=== PATIENT | female | born 1985 | race Caucasian/White ===

== ENCOUNTER → 2016-04-02 | Outpatient (CLI) | payer OTHER ==
[~2016-04-02] MED LIST: AC500T PO; ASPI-999 PO; CEPH-507 PO; CPR250T PO; DCS100C PO; DOCU100C37 PO; FOLI0.8T PO; HYDR-3720 PO; IBP800T PO; IBUP-1780 PO; KETO-22 PO; MEPE50TA PO; NITR-33 PO; NITR-65 PO; ONDA8TAB6 PO; ONDAN4ODT PO; ONDN4T PO; OXYC-12 PO; OXYC-272 PO; OXYC-465 PO; OXYC10TA8; PEDI1TAB35 PO; PREN1TAB14 PO; PREN1TAB86 PO; PROM25SU10 RC; TRM50T PO; birth control pill
--- NOTE | 2016-04-02 11:53 | Diagnostic Imaging Report ---
EXAMINATION: Right lower extremity duplex venous ultrasound. TECHNIQUE: DVT protocol. Multiple sonographic images with color Doppler and waveform interrogation were performed of the right lower extremity veins with compression and augmentation maneuvers. INDICATION: Right leg pain. FINDINGS: The right lower extremity veins from the groin to below the knee veins were examined with normal color-flow, compressibility and normal waveform demonstrated. The great saphenous vein is patent. IMPRESSION: No evidence of DVT in the right lower extremity. Dictated by: Dictated on workstation # [id number]
== END ==
LOC: RAD 11:02
PROVIDERS: ATTEND Obstetrics & Gynecology
DX: M79.661 Pain in right lower leg (principal)

== ENCOUNTER 2016-04-09 22:05 | Observation (INO) | payer OTHER ==
[~2016-04-09] VITALS: Ht 168.9 cm; Wt 109.3 kg
[~2016-04-09 22:05] MED LIST changes: -ASPI-999 PO; -CEPH-507 PO; -DOCU100C37 PO; -FOLI0.8T PO; -IBUP-1780 PO; -OXYC-465 PO; -PEDI1TAB35 PO; -PREN1TAB86 PO
--- OUTSIDE RECORDS SUMMARY | 2016-04-09 22:09 | XMS REPORT ---
Author Author CLEMENCIA BARRETO Organization [employer] Address Unknown Phone Unavailable Care Team Providers Care Electronic Tester Name Role Phone CLEMENCIA BARRETO CP Unavailable Allergies No Known Allergies Problems Problem Type Condition Code Onset Dates Condition Status Problem Acute upper respiratory infections of unspecified site 465.9 Active Problem Polycystic ovaries 256.4 Active Problem examination or test, positive result V72.42 Active Problem Dietary surveillance and counseling V65.3 Active Problem Supervision of normal first V22.0 Active Problem Overweight 278.02 Active Problem Need for prophylactic vaccination and inoculation, Influenza V04.81 Active Problem Allergic rhinitis, cause unspecified 477.9 Active Problem Leukorrhea, not specified as infective 623.5 Active Problem Unspecified constipation 564.00 Active Problem General counseling for initiation of other contraceptive measures V25.02 Active Problem Surveillance of previously prescribed intrauterine contraceptive device V25.42 Active Problem DTAP TEST V06.1 Active Problem Unspecified examination V72.9 Active Problem Family history of unspecified malignant neoplasm V16.9 Active Problem Benign neoplasm of skin, site unspecified 216.9 Active Medications Medication Code System Code Instructions Start Date End Date Status Dosage Amoxicillin [facility] [address]-83 500 MG Orally every 12 hrs Jan 21, 2015 Jan 28, 2015 1 capsule Results No Known Results Summary Purpose [employer] Submission
[2016-04-09 22:23] VITALS: BP 121/64
[2016-04-09] MEDS ORDERED: D5 LR IV SOLUTION 1,000 ML IV ONE (22:37)
[2016-04-09] MEDS ORDERED: BUTORPHANOL INJ 2 MG/ML (STADOL) VIAL IV PRN ×2 (22:45→23:45)
[2016-04-09] MEDS: D5 LR IV SOLUTION 1,000 ML IV SCH (22:57)
[2016-04-09 23:16] LABS: BASOPHILS % (AUTO) 0 % (0-10); BILIRUBIN,URINE NEGATIVE (NEGATIVE); EOSINOPHILS # (AUTO) 0.1 10^3/uL (0.0-0.3); EOSINOPHILS % (AUTO) 1 % (0-10); KETONES,URINE NEGATIVE (NEGATIVE); LEUKOCYTE ESTERASE ,URINE NEGATIVE (NEGATIVE); LYMPHOCYTES # (AUTO) 2.9 X 10^3 (1.0-4.0); LYMPHOCYTES % (AUTO) 25 % (12-44); MEAN CORPUSCULAR HEMOGLOBIN 31 PG (25-34); MEAN CORPUSCULAR HGB CONC 35 G/DL (32-36); MEAN CORPUSCULAR VOLUME 89 FL (80-99); MEAN PLATELET VOLUME 9.7 FL (7.4-10.4); MONOCYTES # (AUTO) 0.8 X 10^3 (0.0-1.0); MONOCYTES % (AUTO) 7 % (0-12); NEUTROPHILS # (AUTO) 7.8 X 10^3 (1.8-7.8); NEUTROPHILS % (AUTO) 68 % (42-75); NITRITE,URINE NEGATIVE (NEGATIVE); PH,URINE 7 (5-9); PLATELET COUNT 266 10^3/uL (130-400); PROTEIN,URINE NEGATIVE (NEGATIVE); RED BLOOD COUNT 3.69 10^6/uL (4.35-5.85); RED CELL DISTRIBUTION WIDTH 12.5 % (10.0-14.5); UROBILINOGEN,URINE NORMAL (NORMAL); WHITE BLOOD COUNT 11.6 10^3/uL (4.3-11.0)
[2016-04-09] MEDS ORDERED: ASPI-999 PO (23:36)
[2016-04-09] MEDS ORDERED: PEDI1TAB35 PO (23:36)
[2016-04-09] MEDS ORDERED: FOLI0.8T PO (23:36)
[2016-04-10] MEDS: D5 LR IV SOLUTION 1,000 ML IV SCH ×2 (01:55→06:48)
--- NOTE | 2016-04-10 07:05 | History & Physical ---
History and Physical this patient is a 30-year-old white female with an EDC of 4 2617 patient her 28 and 29 weeks gestation. she presented with complaint of severe left flank pain like she had had when she had kidney stones before. Evaluation was consistent with recurrent nephrolithiasis/ureteral lithiasis. Patient denies rupture membranes or bleeding. She does feel baby moving. She denies ever chills. She's had no other problems with this . Allergies are to codeine which causes nausea and vomiting Medications are vitamins folic acid and a 81 mg aspirin a day S medical history, past surgical history, obstetric history, family history and social histories are per the antepartum record HEENT exam is normal Neck is supple no lymphadenopathy no thyromegaly Abdomen is gravid soft nontender nondistended Extreme show clubbing cyanosis. There is no Homans sign. Patient has mild left flank tenderness on palpation Exam is deferred Laboratory Tests Test 04/09/16 23:00 Range/Units Basophils # (Auto) 0.0 0.0-0.1 10^3/uL Basophils (%) (Auto) 0 0-10 % Eosinophils # (Auto) 0.1 0.0-0.3 10^3/uL Eosinophils (%) (Auto) 1 0-10 % Hematocrit 33 L 35-52 % Hemoglobin 11.3 L 11.5-16.0 G/DL Lymphocytes # (Auto) 2.9 1.0-4.0 X 10^3 Lymphocytes (%) (Auto) 25 12-44 % Mean Corpuscular Hemoglobin 31 25-34 PG Mean Corpuscular Hemoglobin Concent 35 32-36 G/DL Mean Corpuscular Volume 89 80-99 FL Mean Platelet Volume 9.7 7.4-10.4 FL Monocytes # (Auto) 0.8 0.0-1.0 X 10^3 Monocytes (%) (Auto) 7 0-12 % Neutrophils # (Auto) 7.8 1.8-7.8 X 10^3 Neutrophils (%) (Auto) 68 42-75 % Platelet Count 266 130-400 10^3/uL Red Blood Count 3.69 L 4.35-5.85 10^6/uL Red Cell Distribution Width 12.5 10.0-14.5 % Urine Bacteria NEGATIVE /HPF Urine Bilirubin NEGATIVE NEGATIVE Urine Casts NONE /LPF Urine Clarity CLEAR Urine Color YELLOW Urine Crystals NONE /LPF Urine Culture Indicated NO Urine Glucose (UA) NEGATIVE NEGATIVE Urine Ketones NEGATIVE NEGATIVE Urine Leukocyte Esterase NEGATIVE NEGATIVE Urine Mucus NEGATIVE /LPF Urine Nitrite NEGATIVE NEGATIVE Urine Protein NEGATIVE NEGATIVE Urine RBC 50-100 H /HPF Urine RBC (Auto) 5+ H NEGATIVE Urine Specific [place] 1.010 L 1.016-1.022 Urine Urobilinogen NORMAL NORMAL MG/DL Urine WBC 2-5 /HPF Urine pH 7 5-9 White Blood Count 11.6 H 4.3-11.0 10^3/uL Patient's white blood cell count is very mildly elevated she has significant microhematuria. monitor shows no contractions and normal heart rate pattern Assessment and plan likely recurrent kidney stones. Patient currently is hydration and analgesia and observation. We'll consult [facility] for any further evaluation and management. We'll go ahead with [facility] to cover empirically. nephrolithiasis/ureterolithiasis/28 week Allergies and Home Medications Allergies Coded Allergies: Hydrocodone (Unverified Allergy, Mild, 02/15/09) Home Medications Aspirin 81 Mg Tab.chew 81 MG PO DAILY (Reported) Folic Acid 0.8 Mg Tablet 0.8 MG PO DAILY (Reported) Pediatric Multivit Comb. No.49 1 Each Tab.chew 2 EACH PO DAILY (Reported) FERNANDO ALMANZA MD Apr 10, 2016 7:05 am
[2016-04-10] MEDS ORDERED: oxyCODONE/APAP 10/325MG (PERCOCET 10) TABLET PO PRN (07:15)
[2016-04-10] MEDS ORDERED: ceFAZolin 2 GM/50 ML NS 50 ML IV SCH (07:15)
[2016-04-10 08:22] VITALS: BP 115/73
--- NOTE | 2016-04-10 10:02 | Diagnostic Imaging Report ---
EXAMINATION: Renal ultrasound. INDICATION: Left flank pain. History of stones. FINDINGS: There is a mild left hydronephrosis. The right kidney is normal. The urinary bladder appears unremarkable. There is an asymmetric diminished ureteric jet seen on the left side compared to the right side with color Doppler. No obvious stone is identified in this exam. The right kidney is 15 CM in length and the left kidney is 13.6 CM in length. IMPRESSION: Mild left hydronephrosis. Dictated by: Dictated on workstation # [id number]
--- NOTE | 2016-04-10 10:40 | Diagnostic Imaging Report ---
EXAM: ABDOMEN/KUB 1VIEW INDICATION: Flank pain. COMPARISON: KUB 10/25/2010. FINDINGS: No radiopaque densities identified overlying either kidney or course of the ureters. Cholecystectomy. Large amount of stool throughout the colon may represent a degree of constipation. Late skeletal structures. The patient reportedly signed consent prior to examination. IMPRESSION: 1. No radiopaque densities identified suggestive of urinary calculi. 2. Large amount of stool throughout much of the colon may represent a degree of constipation. Dictated by: Dictated on workstation # [id number]
[2016-04-10] MEDS ORDERED: OXYC-465 PO (11:33)
--- NOTE | 2016-04-10 11:37 | Discharge Instructions ---
Discharge Instructions Discharge Medications New, Converted or Re-Newed RX: RX on Chart Patient Instructions Patient Instructions: as directed Return to The Hospital For: as directed Activity & Diet Discharge Diet: No Restrictions Activity as Tolerated: Yes Orders-Post D/C & Referrals Follow Up Appt: return to clinic with me as scheduled Follow-up with Dr. Benson next week Return to clinic promptly for any signs symptoms and indications of recurrent kidney stones Activity: Rest for 24 hours, than as tolerated. Diet: As tolerated. May shower or tub bathe as desired. Patient to return to the clinic as soon as possible for: Temperature greater than 101F, Severe Pain, Foul discharge from incision or vagina, Excessive Bleeding (more than a period). FERNANDO ALMANZA MD Apr 10, 2016 11:37
[2016-04-10 12:04] VITALS: BP 113/70
--- NOTE | 2016-04-10 12:46 | CONSULTATION REPORT ---
DATE OF CONSULTATION: 04/10/2016 ATTENDING PHYSICIAN: Dr. Stephenson. SUMMARY: 31-year-old white lady who I removed a stone about 5 years ago. She is 28 weeks . She is being admitted by Dr. Stephenson with left flank pain similar to her previous left renal colic. She has not had any x-ray yet. She feels comfortable; pain comes and goes She has some tenderness in the left flank. IMPRESSION: Left flank and abdominal pain, possible stone with history of urolithiasis. PLAN: Start getting a KUB and a renal ultrasound and manage accordingly. Job ID: [id number] Dictated Date: 04/10/2016 09:19:40 Heading Saw Operator Date: 04/10/2016 12:43:51/french
== END 2016-04-10 11:34 | disposition home or self-care (01) ==
LOC: LDRP 22:05 → WSo 22:05 → LDRP 22:10 → UNDOADMOB 22:34 → LDRP 22:34 → WSo 22:34 → LDRP 22:34 → UNDODISOB 04-10 12:37 → EDSTATUS 04-12 11:12
PROVIDERS: ADMIT Obstetrics & Gynecology; ATTEND Obstetrics & Gynecology
DX: O99.89 Other specified diseases and conditions complicating pregnancy, childbirth and the puerperium (principal); R10.32 Left lower quadrant pain; Z3A.28 28 weeks gestation of pregnancy
CPT/HCPCS: 36415; 74000; 76770; 81000; 85025; 87088; 96361; 96374; 96375; 96376; 99211; G0378

== ENCOUNTER 2016-04-11 09:00 | Inpatient (IN) | payer OTHER ==
[~2016-04-11] VITALS: Ht 167.6 cm; Wt 109.8 kg
[~2016-04-11 09:00] MED LIST changes: +ASPI-999 PO; +FOLI0.8T PO; +OXYC-465 PO; +PEDI1TAB35 PO
[2016-04-11] MEDS ORDERED: ONDANSETRON 4 MG/2 ML (SDV) Z0FRAN IVP ONE (09:30)
[2016-04-11] MEDS ORDERED: BUTORPHANOL INJ 2 MG/ML (STADOL) VIAL IV ONE (09:30)
[2016-04-11] MEDS: D5 LR IV SOLUTION 1,000 ML IV SCH ×2 (10:29→19:14)
[2016-04-11 10:35] LABS: BASOPHILS % (AUTO) 0 % (0-10); EOSINOPHILS % (AUTO) 0 % (0-10); LYMPHOCYTES # (AUTO) 1.2 X 10^3 (1.0-4.0); LYMPHOCYTES % (AUTO) 10 % (12-44); MEAN CORPUSCULAR HEMOGLOBIN 30 PG (25-34); MEAN CORPUSCULAR HGB CONC 34 G/DL (32-36); MEAN CORPUSCULAR VOLUME 89 FL (80-99); MEAN PLATELET VOLUME 9.3 FL (7.4-10.4); MONOCYTES # (AUTO) 0.5 X 10^3 (0.0-1.0); MONOCYTES % (AUTO) 4 % (0-12); NEUTROPHILS # (AUTO) 10.3 X 10^3 (1.8-7.8); NEUTROPHILS % (AUTO) 85 % (42-75); PLATELET COUNT 258 10^3/uL (130-400); RED BLOOD COUNT 3.81 10^6/uL (4.35-5.85); RED CELL DISTRIBUTION WIDTH 12.5 % (10.0-14.5)
[2016-04-11 10:45] VITALS: BP 114/65
[2016-04-11 10:57] LABS: ALANINE AMINOTRANSFERASE 10 U/L (0-55); ALBUMIN 3.5 G/DL (3.2-4.5); ANION GAP 11 MMOL/L (5-14); ASPARTATE AMINO TRANSFERASE 14 U/L (5-34); BILIRUBIN,TOTAL 0.3 MG/DL (0.1-1.0); BLOOD UREA NITROGEN 8 MG/DL (7-18); BUN/CREATININE RATIO 9; CALCIUM 9.4 MG/DL (8.5-10.1); CARBON DIOXIDE 22 MMOL/L (21-32); CHLORIDE 104 MMOL/L (98-107); CREATININE SERUM 0.85 MG/DL (0.60-1.30); GFR ESTIMATED > 60; GLUCOSE 99 MG/DL (70-105); POTASSIUM 4.3 MMOL/L (3.6-5.0); SODIUM 137 MMOL/L (135-145); TOTAL PROTEIN 6.7 G/DL (6.4-8.2)
[2016-04-11 12:12] VITALS: BP 120/70
[2016-04-11] MEDS: CATHETER FLUSH 10 ML SYR IV PRN ×3 (13:11→14:51)
[2016-04-11] MEDS ORDERED: IOHEXOL 300 MG/ML 100 ML (OMNIPAQUE 300) VIAL IV ONE (13:15)
[2016-04-11 14:00] VITALS: BP 125/66
[2016-04-11] MEDS ORDERED: cefTRIAXone INJECTION 1,000 MG in NS (IVPB) 50 ML IV SCH (14:00)
[2016-04-11] MEDS ORDERED: BUTORPHANOL INJ 2 MG/ML (STADOL) VIAL IV PRN (14:15)
--- NOTE | 2016-04-11 14:53 | Diagnostic Imaging Report ---
EXAMINATION: IVP. INDICATION: Evaluate for kidney stone. Patient has significant left flank pain and has hydronephrosis on the left side. TECHNIQUE: The patient is and the study is performed with a modified technique with only 2 KUB images to decrease the radiation exposure to minimum. The patient was also consulted about the small risk and based on the diagnostic benefit from the study the patient has agreed to perform the exam. 100 mL of Omnipaque 300 is administered intravenously. FINDINGS: 2 images one at 6 minutes and the other one at 45 minutes were obtained after contrast injection. The 6 minute image demonstrates a 6 mm calcification in the left side of the pelvis suspected to be a stone. This demonstrates a asymmetric normal prompt excretion of contrast on the right side to the renal collecting system and the ureter which is minimally dilated, expected in . There is persistent nephrogram at the 6 minute image on the left side with no excretion. The delayed 45 minute image demonstrates still persistent asymmetric nephrogram on the left side with moderate right hydronephrosis and the mildly dilated proximal ureter. The ureter appears to be opacified to the level of the stone. Liver and bladder is normally opacified. IMPRESSION: Findings suggestive of obstructive 6 mm stone in the distal left ureter about 3.5 CM from the UVJ level. There is moderate left hydronephrosis. The findings were discussed with Dr. Fonseca by Dr. Wiley at time of dictation. Dictated by: Dictated on workstation # [id number]
[2016-04-11 17:07] VITALS: BP 111/61
--- NOTE | 2016-04-11 17:11 | History & Physical ---
History and Physical this patient is a 30-year-old white female with an EDC of 4 2617 placing her at 29+ weeks' gestation. She had been observed yesterday signs symptoms and indications consistent with kidney stone which seem that she had passed as her symptoms have resolved. A KUB and ultrasound were negative. She was discharged home yesterday is entered again this morning with severe sudden onset recurrently of left flank and back pain. She is admitted given IV fluids and IV pain medication to good effect. A limited IVP 6 demonstrated a left ureteral stone at the level of the pelvic brim. Dr. Benson has been consulted and will be managing the patient in that regard.. Patient denies rupture membranes or bleeding. She denies contraction. Her pain is controlled with medication. Allergies are to codeine which causes vomiting Medications are vitamins, folic acid, 81 mg aspirin a day. Past medical history, past surgical history, obstetric history, family history, and social histories are per the antepartum record HEENT exam is normal Neck is supple with no lymphadenopathy no thyromegaly Abdomen is gravid soft nontender nondistended Extremities show no clubbing cyanosis. There is no Homans sign. Pelvic exam is deferred Back exam shows some mild left flank tenderness on percussion. Again a limited IVP demonstrates a left ureteral stone Laboratory Tests Test 04/11/16 10:25 Range/Units Alanine Aminotransferase (ALT/SGPT) 10 0-55 U/L Albumin 3.5 3.2-4.5 G/DL Alkaline Phosphatase 106 40-136 U/L Anion Gap 11 5-14 MMOL/L Aspartate Amino Transf (AST/SGOT) 14 5-34 U/L BUN/Creatinine Ratio 9 Basophils # (Auto) 0.0 0.0-0.1 10^3/uL Basophils (%) (Auto) 0 0-10 % Blood Urea Nitrogen 8 7-18 MG/DL Calcium Level 9.4 8.5-10.1 MG/DL Carbon Dioxide Level 22 21-32 MMOL/L Chloride Level 104 98-107 MMOL/L Creatinine 0.85 0.60-1.30 MG/DL Eosinophils # (Auto) 0.0 0.0-0.3 10^3/uL Eosinophils (%) (Auto) 0 0-10 % Estimat Glomerular Filtration Rate > 60 Glucose Level 99 70-105 MG/DL Hematocrit 34 L 35-52 % Hemoglobin 11.6 11.5-16.0 G/DL Lymphocytes # (Auto) 1.2 1.0-4.0 X 10^3 Lymphocytes (%) (Auto) 10 L 12-44 % Mean Corpuscular Hemoglobin 30 25-34 PG Mean Corpuscular Hemoglobin Concent 34 32-36 G/DL Mean Corpuscular Volume 89 80-99 FL Mean Platelet Volume 9.3 7.4-10.4 FL Monocytes # (Auto) 0.5 0.0-1.0 X 10^3 Monocytes (%) (Auto) 4 0-12 % Neutrophils # (Auto) 10.3 H 1.8-7.8 X 10^3 Neutrophils (%) (Auto) 85 H 42-75 % Platelet Count 258 130-400 10^3/uL Potassium Level 4.3 3.6-5.0 MMOL/L Red Blood Count 3.81 L 4.35-5.85 10^6/uL Red Cell Distribution Width 12.5 10.0-14.5 % Sodium Level 137 135-145 MMOL/L Total Bilirubin 0.3 0.1-1.0 MG/DL Total Protein 6.7 6.4-8.2 G/DL White Blood Count 12.0 H 4.3-11.0 10^3/uL White blood cell count is very mildly elevated Assessment and plan ureteral colic secondary to a stone Dr. Benson is aware of and managing the patient. Management currently is IV fluids pain medicine and observation. If the stone does not pass over patient begins to become septic then Dr. Benson with manage the stone surgically. Patient is otherwise stable obstetrically. Plan is for inpatient management until this is resolved left ureterolithiasis Allergies and Home Medications Allergies Coded Allergies: Hydrocodone (Unverified Allergy, Mild, 02/15/09) Home Medications Aspirin 81 Mg Tab.chew 81 MG PO DAILY (Reported) Folic Acid 0.8 Mg Tablet 0.8 MG PO DAILY (Reported) Oxycodone HCl/Acetaminophen 1 Each Tablet #30 1-2 TAB PO Q4HR PRN PRN MODERATE PAIN Prescribed by: FERNANDO CORONA on 04/10/16 1133 Pediatric Multivit Comb. No.49 1 Each Tab.chew 2 EACH PO DAILY (Reported) FERNANDO ALMANZA MD Apr 11, 2016 17:11
[2016-04-11] MEDS ORDERED: ACETAMINOPHEN 325 MG TABLET/CAPLET (TYLENOL) PO PRN (17:30)
[2016-04-11 19:50] VITALS: BP 123/75
[2016-04-12] MEDS: D5 LR IV SOLUTION 1,000 ML IV SCH ×4 (02:35→20:55)
[2016-04-12 02:45] VITALS: BP 116/67
[2016-04-12 05:59] LABS: BASOPHILS % (AUTO) 0 % (0-10); EOSINOPHILS # (AUTO) 0.1 10^3/uL (0.0-0.3); EOSINOPHILS % (AUTO) 2 % (0-10); LYMPHOCYTES # (AUTO) 1.9 X 10^3 (1.0-4.0); LYMPHOCYTES % (AUTO) 26 % (12-44); MEAN CORPUSCULAR HEMOGLOBIN 30 PG (25-34); MEAN CORPUSCULAR HGB CONC 33 G/DL (32-36); MEAN CORPUSCULAR VOLUME 91 FL (80-99); MEAN PLATELET VOLUME 9.1 FL (7.4-10.4); MONOCYTES # (AUTO) 0.5 X 10^3 (0.0-1.0); MONOCYTES % (AUTO) 7 % (0-12); NEUTROPHILS # (AUTO) 4.8 X 10^3 (1.8-7.8); NEUTROPHILS % (AUTO) 65 % (42-75); PLATELET COUNT 221 10^3/uL (130-400); RED BLOOD COUNT 3.19 10^6/uL (4.35-5.85); RED CELL DISTRIBUTION WIDTH 12.5 % (10.0-14.5); WHITE BLOOD COUNT 7.4 10^3/uL (4.3-11.0)
--- NOTE | 2016-04-12 07:31 | Progress Note-Standard ---
Standard Progress Note Progress Notes/Assess & Plan Progress/Assessment & Plan patient complains of persistent left back/flank pain. Patient denies rupture membranes or bleeding. She feel baby moving and denies contractions. She denies headache, denies nausea vomiting, denies chest pain, denies shortness of breath. She does not feel like she has passed the left ureteral stone Vital Signs Date Time Temp Pulse Resp B/P Pulse Ox O2 Delivery O2 Flow Rate FiO2 04/12/16 02:45 98.1 71 18 116/67 97 Room Air 04/11/16 21:56 18 04/11/16 19:50 98.2 90 18 123/75 98 Room Air 04/11/16 17:07 97.6 80 20 111/61 Room Air 04/11/16 14:00 97.6 87 20 125/66 Room Air 04/11/16 12:12 97.8 74 18 120/70 99 Room Air 04/11/16 10:45 90 20 114/65 I & O 04/12/16 07:00 Intake Total 3790 ml Output Total 2550 ml Balance 1240 ml Vital signs are stable. Patient is afebrile. Laboratory Tests Test 04/11/16 10:25 04/12/16 05:53 Range/Units Alanine Aminotransferase (ALT/SGPT) 10 0-55 U/L Albumin 3.5 3.2-4.5 G/DL Alkaline Phosphatase 106 40-136 U/L Anion Gap 11 5-14 MMOL/L Aspartate Amino Transf (AST/SGOT) 14 5-34 U/L BUN/Creatinine Ratio 9 Basophils # (Auto) 0.0 0.0 0.0-0.1 10^3/uL Basophils (%) (Auto) 0 0 0-10 % Blood Urea Nitrogen 8 7-18 MG/DL Calcium Level 9.4 8.5-10.1 MG/DL Carbon Dioxide Level 22 21-32 MMOL/L Chloride Level 104 98-107 MMOL/L Creatinine 0.85 0.60-1.30 MG/DL Eosinophils # (Auto) 0.0 0.1 0.0-0.3 10^3/uL Eosinophils (%) (Auto) 0 2 0-10 % Estimat Glomerular Filtration Rate > 60 Glucose Level 99 70-105 MG/DL Hematocrit 34 L 29 L 35-52 % Hemoglobin 11.6 9.5 L 11.5-16.0 G/DL Lymphocytes # (Auto) 1.2 1.9 1.0-4.0 X 10^3 Lymphocytes (%) (Auto) 10 L 26 12-44 % Mean Corpuscular Hemoglobin 30 30 25-34 PG Mean Corpuscular Hemoglobin Concent 34 33 32-36 G/DL Mean Corpuscular Volume 89 91 80-99 FL Mean Platelet Volume 9.3 9.1 7.4-10.4 FL Monocytes # (Auto) 0.5 0.5 0.0-1.0 X 10^3 Monocytes (%) (Auto) 4 7 0-12 % Neutrophils # (Auto) 10.3 H 4.8 1.8-7.8 X 10^3 Neutrophils (%) (Auto) 85 H 65 42-75 % Platelet Count 258 221 130-400 10^3/uL Potassium Level 4.3 3.6-5.0 MMOL/L Red Blood Count 3.81 L 3.19 L 4.35-5.85 10^6/uL Red Cell Distribution Width 12.5 12.5 10.0-14.5 % Sodium Level 137 135-145 MMOL/L Total Bilirubin 0.3 0.1-1.0 MG/DL Total Protein 6.7 6.4-8.2 G/DL White Blood Count 12.0 H 7.4 4.3-11.0 10^3/uL patient's lab work is stable. Her white count has decreased somewhat Abdomen is benign. Fundus is nontender Extremities show no clubbing cyanosis. There is no Homans sign. Assessment and plan hospital day 2 with left ureteral stone and ureteral colic. Dr. Benson is aware and is following the patient and will manage her treatment in regard to the ureteral stone. We'll continue the antibiotics as recommended by FERNANDO Israel MD Apr 12, 2016 7:31 am
[2016-04-12 08:32] VITALS: BP 117/72
--- NOTE | 2016-04-12 10:03 | Progress Note-Urology ---
Progress Note-Urology Progress Notes/Assess & Plan Progress/Assessment & Plan NO STONE PASSED. ON AND OFF PAIN. KUB AND IVP SHOWN TO PATIENT. PLAN OR TOMORROW. FULLY EXPLAINED WITH ALL EXPECTATIONS, RISKS, AND COMPLICATIONS STRESSING ON THE ONES RELATED TO AND THE FOETUS Final Diagnosis LT DISTAL URETERAL STONE JENNIFER MISHRA MD Apr 12, 2016 10:03 am
[2016-04-12 12:55] VITALS: BP 126/80
[2016-04-12] MEDS ORDERED: cefTRIAXone INJECTION 1,000 MG in NS (IVPB) 50 ML IV SCH (14:45)
[2016-04-12 15:25] VITALS: BP 125/63
[2016-04-12 20:16] VITALS: BP 110/53
[2016-04-13] VITALS (8 sets, daily range): BP systolic 92–126; BP diastolic 55–80
[2016-04-13] MEDS: D5 LR IV SOLUTION 1,000 ML IV SCH (00:47)
--- NOTE | 2016-04-13 07:13 | Progress Note-Pre Operative ---
Pre-Operative Progress Note H&P Reviewed The H&P was reviewed, patient examined and no changes noted. Date H&P Reviewed: Apr 13, 2016 Time H&P Reviewed: 07:13 Pre-Operative Diagnosis: LT DISTAL URETERAL STONE JENNIFER MISHRA MD Apr 13, 2016 7:13 am
[2016-04-13] MEDS ORDERED: fentaNYL INJECTION 100 MCG/2 ML AMP ONE (07:17)
[2016-04-13] MEDS ORDERED: LACTATED RINGERS 1,000 ML IV ONE ×2 (07:17→07:26)
--- NOTE | 2016-04-13 07:24 | Progress Note-Standard ---
Standard Progress Note Progress Notes/Assess & Plan Progress/Assessment & Plan patient complains of persistent left back/flank pain. Patient denies rupture membranes or bleeding. She feel baby moving and denies contractions. She denies headache, denies nausea vomiting, denies chest pain, denies shortness of breath. She does not feel like she has passed the left ureteral stone Vital Signs Date Time Temp Pulse Resp B/P Pulse Ox O2 Delivery O2 Flow Rate FiO2 04/12/16 02:45 98.1 71 18 116/67 97 Room Air 04/11/16 21:56 18 04/11/16 19:50 98.2 90 18 123/75 98 Room Air 04/11/16 17:07 97.6 80 20 111/61 Room Air 04/11/16 14:00 97.6 87 20 125/66 Room Air 04/11/16 12:12 97.8 74 18 120/70 99 Room Air 04/11/16 10:45 90 20 114/65 I & O 04/12/16 07:00 Intake Total 3790 ml Output Total 2550 ml Balance 1240 ml Vital signs are stable. Patient is afebrile. Laboratory Tests Test 04/11/16 10:25 04/12/16 05:53 Range/Units Alanine Aminotransferase (ALT/SGPT) 10 0-55 U/L Albumin 3.5 3.2-4.5 G/DL Alkaline Phosphatase 106 40-136 U/L Anion Gap 11 5-14 MMOL/L Aspartate Amino Transf (AST/SGOT) 14 5-34 U/L BUN/Creatinine Ratio 9 Basophils # (Auto) 0.0 0.0 0.0-0.1 10^3/uL Basophils (%) (Auto) 0 0 0-10 % Blood Urea Nitrogen 8 7-18 MG/DL Calcium Level 9.4 8.5-10.1 MG/DL Carbon Dioxide Level 22 21-32 MMOL/L Chloride Level 104 98-107 MMOL/L Creatinine 0.85 0.60-1.30 MG/DL Eosinophils # (Auto) 0.0 0.1 0.0-0.3 10^3/uL Eosinophils (%) (Auto) 0 2 0-10 % Estimat Glomerular Filtration Rate > 60 Glucose Level 99 70-105 MG/DL Hematocrit 34 L 29 L 35-52 % Hemoglobin 11.6 9.5 L 11.5-16.0 G/DL Lymphocytes # (Auto) 1.2 1.9 1.0-4.0 X 10^3 Lymphocytes (%) (Auto) 10 L 26 12-44 % Mean Corpuscular Hemoglobin 30 30 25-34 PG Mean Corpuscular Hemoglobin Concent 34 33 32-36 G/DL Mean Corpuscular Volume 89 91 80-99 FL Mean Platelet Volume 9.3 9.1 7.4-10.4 FL Monocytes # (Auto) 0.5 0.5 0.0-1.0 X 10^3 Monocytes (%) (Auto) 4 7 0-12 % Neutrophils # (Auto) 10.3 H 4.8 1.8-7.8 X 10^3 Neutrophils (%) (Auto) 85 H 65 42-75 % Platelet Count 258 221 130-400 10^3/uL Potassium Level 4.3 3.6-5.0 MMOL/L Red Blood Count 3.81 L 3.19 L 4.35-5.85 10^6/uL Red Cell Distribution Width 12.5 12.5 10.0-14.5 % Sodium Level 137 135-145 MMOL/L Total Bilirubin 0.3 0.1-1.0 MG/DL Total Protein 6.7 6.4-8.2 G/DL White Blood Count 12.0 H 7.4 4.3-11.0 10^3/uL patient's lab work is stable. Her white count has decreased somewhat Abdomen is benign. Fundus is nontender Extremities show no clubbing cyanosis. There is no Homans sign. Assessment and plan hospital day 2 with left ureteral stone and ureteral colic. Dr. Benson is aware and is following the patient and will manage her treatment in regard to the ureteral stone. We'll continue the antibiotics as recommended by Dr. Benson April 13, 2016 Patient without complaint except for her continued left flank pain. She does not think that she is past the stone. She is prepared for having it surgically removed. She feel baby moving. Patient denies contraction. Patient denies ruptured membranes or bleeding. Vital Signs Date Time Temp Pulse Resp B/P Pulse Ox O2 Delivery O2 Flow Rate FiO2 04/13/16 05:05 97.8 91 16 98/55 96 Room Air 04/13/16 00:45 98.1 84 18 92/55 97 Room Air 04/12/16 23:00 98.0 04/12/16 20:16 74 110/53 04/12/16 15:25 97.8 72 18 125/63 97 Room Air 04/12/16 12:55 97.9 90 16 126/80 97 Room Air 04/12/16 08:32 97.6 85 18 117/72 98 Room Air I & O 04/13/16 07:00 Intake Total 4490 ml Output Total 5000 ml Balance -510 ml Vital signs are stable. Patient afebrile. Abdomen is benign/gravid. Extreme show clubbing or cyanosis. There is no Homans sign. Assessment and plan left ureteral stone. Plan is for surgical removal at the hands of Dr. Benson. plan will be for discharge home and follow-up in clinic when approved by Dr. Benson Final Diagnosis left ureteral stone/ureteral colic FERNANDO ALMANZA MD Apr 13, 2016 7:24 am
[2016-04-13] MEDS: LACTATED RINGERS 1,000 ML IV PRN ×2 (07:25→08:00)
--- NOTE | 2016-04-13 07:26 | Discharge Instructions ---
Discharge Instructions Discharge Medications New, Converted or Re-Newed RX: Other Patient Instructions Patient Instructions: as directed Return to The Hospital For: as directed Activity & Diet Discharge Diet: No Restrictions Activity as Tolerated: Yes Orders-Post D/C & Referrals Follow Up Appt: return to clinic as scheduled for OMAR Activity: Rest for 24 hours, than as tolerated. Diet: As tolerated-Clear Liquids only if nauseated. May shower or tub bathe as desired. Patient to return to the clinic as soon as possible for: Temperature greater than 101F, Severe Pain, Foul discharge from incision or vagina, Excessive Bleeding (more than a period). FERNANDO ALMANZA MD Apr 13, 2016 7:26 am
--- NOTE | 2016-04-13 08:29 | Progress Note-Post Operative ---
Post-Operative Progess Note Pre-Operative Diagnosis LT DISTAL URETERAL STONE Post-Operative Diagnosis SAME Post-Op Procedure Note Date of Procedure: Apr 13, 2016 Name of Procedure: CUSTO, LT URETEROSCOPY WITH STONE BASKET Anesthesia Type SPINAL Specimen(s) collected STONE FOR ANALYSIS JENNIFER MISHRA MD Apr 13, 2016 8:29 am
--- NOTE | 2016-04-15 08:03 | OPERATIVE REPORT ---
PROCEDURE PHYSICIAN: JENNIFER MISHRA DATE OF PROCEDURE: 04/13/2016 PREOPERATIVE DIAGNOSIS: Left distal ureteral stone in a 28 weeks woman. POSTOPERATIVE DIAGNOSIS: Left distal ureteral stone in a 28 weeks woman. OPERATION: 1. Cystoscopy. 2. Left ureteroscopy with stone basket. SURGEON: Raymundo. ANESTHESIA: General. COMPLICATIONS: None. PROCEDURE: Under satisfactory spinal anesthesia, the patient in lithotomy position after checking the heart sounds that were normal preoperatively and postoperatively, the patient was put in lithotomy position, the genitalia were prepped and draped in usual sterile fashion. Noted a 2+ cystocele. Cystoscope was introduced under vision. The bladder was essentially normal. Ureteric orifice normal in shape, site and configuration with clear efflux, sluggish on the left side. Using the Foroblique lens, I dilated the left ureteral orifice and intramural portion to accommodate a 6.9-Israeli semirigid ureteroscope. I visualized the stone. I passed the , however, the stone somehow was disengaged or disimpacted so it was floating. I was concerned to lose it if I blasted it. It was small enough to be basketed, being only 5 mm so I put the 3-Israeli Tobin basket and on the second attempt I was able to engage and extract the stone fully with no problems. I went back with the ureteroscope beyond the level of the stone to confirm no more fragments or stones and to confirm the integrity of the ureter and no need for stents. The ureteroscope was removed. The bladder was emptied and the patient tolerated the procedure and anesthesia well and was sent to recovery room in stable condition. Job ID: [id number] Dictated Date: 04/13/2016 08:37:57 Crusher Operator Date: 04/15/2016 07:47:27 / french
[2016-04-19 07:05] LABS: KIDNEY STONE WEIGHT 51 MG
[2016-04-19 07:06] LABS: KIDNEY STONE COMPOSITION SEE FOOTNOTE; KIDNEY STONE DESCRIPTION SEE FOOTNOTE; STONE NUMBER 1
== END 2016-04-13 15:00 | disposition home or self-care (01) | DRG 781 ==
LOC: WSo 09:00 → LDRP 09:00 → WS 13:39 → WSo 14:05 → LDRP 14:06 → WS 04-12 11:05 → LDRP 04-12 11:05 → WS 04-12 11:11 → LDRP 04-12 11:11
PROVIDERS: ADMIT Obstetrics & Gynecology; ATTEND Obstetrics & Gynecology
PROC: 0TC78ZZ Extirpation of Matter from Left Ureter, Via Natural or Artificial Opening Endoscopic (ICD-10-PCS; principal; 2016-04-13 07:43)
DX: O99.89 Other specified diseases and conditions complicating pregnancy, childbirth and the puerperium (principal); N20.1 Calculus of ureter; N23 Unspecified renal colic; Z3A.28 28 weeks gestation of pregnancy
CPT/HCPCS: 36415; 74415; 80053; 85025; 87081; 87088; 88300

== ENCOUNTER 2016-05-27 13:19 | Outpatient (CLI) | payer OTHER ==
[~2016-05-27] VITALS: Ht 167.6 cm; Wt 109.8 kg
[2016-05-27 13:45] VITALS: BP 134/77
[2016-05-27 13:56] LABS: BILIRUBIN,URINE NEGATIVE (NEGATIVE); KETONES,URINE NEGATIVE (NEGATIVE); LEUKOCYTE ESTERASE ,URINE NEGATIVE (NEGATIVE); NITRITE,URINE NEGATIVE (NEGATIVE); PH,URINE 7 (5-9); PROTEIN,URINE NEGATIVE (NEGATIVE); UROBILINOGEN,URINE NORMAL (NORMAL)
[2016-05-27] MEDS ORDERED: PREN1TAB86 PO (13:59)
[2016-05-27 14:06] LABS: WBC,URINE 0-2 /HPF
[2016-05-27 14:15] VITALS: BP 132/75
[2016-05-27 14:18] LABS: BASOPHILS % (AUTO) 0 % (0-10); EOSINOPHILS # (AUTO) 0.1 10^3/uL (0.0-0.3); EOSINOPHILS % (AUTO) 1 % (0-10); LYMPHOCYTES # (AUTO) 0.5 X 10^3 (1.0-4.0); LYMPHOCYTES % (AUTO) 7 % (12-44); MEAN CORPUSCULAR HEMOGLOBIN 29 PG (25-34); MEAN CORPUSCULAR HGB CONC 34 G/DL (32-36); MEAN CORPUSCULAR VOLUME 86 FL (80-99); MEAN PLATELET VOLUME 9.6 FL (7.4-10.4); MONOCYTES # (AUTO) 0.5 X 10^3 (0.0-1.0); MONOCYTES % (AUTO) 7 % (0-12); NEUTROPHILS # (AUTO) 5.7 X 10^3 (1.8-7.8); NEUTROPHILS % (AUTO) 85 % (42-75); PLATELET COUNT 198 10^3/uL (130-400); RED BLOOD COUNT 3.86 10^6/uL (4.35-5.85); RED CELL DISTRIBUTION WIDTH 12.8 % (10.0-14.5); WHITE BLOOD COUNT 6.8 10^3/uL (4.3-11.0)
[2016-05-27 14:38] LABS: ALANINE AMINOTRANSFERASE 15 U/L (0-55); ALBUMIN 3.2 G/DL (3.2-4.5); ANION GAP 11 MMOL/L (5-14); ASPARTATE AMINO TRANSFERASE 22 U/L (5-34); BILIRUBIN,TOTAL 0.3 MG/DL (0.1-1.0); BLOOD UREA NITROGEN 5 MG/DL (7-18); BUN/CREATININE RATIO 7; CALCIUM 9.2 MG/DL (8.5-10.1); CARBON DIOXIDE 20 MMOL/L (21-32); CHLORIDE 107 MMOL/L (98-107); CREATININE SERUM 0.71 MG/DL (0.60-1.30); GFR ESTIMATED > 60; GLUCOSE 108 MG/DL (70-105); POTASSIUM 3.5 MMOL/L (3.6-5.0); SODIUM 138 MMOL/L (135-145); TOTAL PROTEIN 6.2 G/DL (6.4-8.2)
[2016-05-27 14:45] VITALS: BP 133/70
[2016-05-27 14:53] LABS: EOSINOPHILS % (MANUAL) 1 %; LYMPHOCYTES % (MANUAL) 4 %; NEUTROPHILS % (MANUAL) 93 %
--- NOTE | 2016-05-28 14:08 | Physician Query-Final Dx ---
ABHIJEET EASLEY 05/28/16 1408: Clinic Account Progress/Dx Physician Query: Please give diagnosis Date of Service May 27, 2016 at 13:19 FERNANDO ALMANZA MD 05/29/16 0750: Clinic Account Progress/Dx DIAGNOSIS: Diagnosis false labor ABHIJEET EASLEY May 28, 2016 14:08 FERNANDO ALMANZA MD May 29, 2016 07:50
[2016-06-12] MEDS ORDERED: DOCU100C37 PO (07:41)
[2016-06-12] MEDS ORDERED: OXYC-465 PO (07:41)
[2016-06-12] MEDS ORDERED: IBUP-1780 PO (07:41)
== END 2016-05-27 15:25 | disposition home or self-care (01) ==
LOC: DELPENDDIS → WSo 13:19 → LDRP 13:19 → WSo 15:25
PROVIDERS: ATTEND Obstetrics & Gynecology
DX: O47.03 False labor before 37 completed weeks of gestation, third trimester (principal); Z3A.35 35 weeks gestation of pregnancy
CPT/HCPCS: 36415; 80053; 81000; 85007; 85027; 87088; 99213

== ENCOUNTER 2016-06-11 01:38 | Inpatient (IN) | payer OTHER ==
[~2016-06-11] VITALS: Ht 167.6 cm; Wt 113.7 kg
[2016-06-11] VITALS (7 sets, daily range): BP systolic 105–141; BP diastolic 59–85
[~2016-06-11 01:38] MED LIST changes: +PREN1TAB86 PO
[2016-06-11] MEDS ORDERED: CEPH-507 PO (02:19)
[2016-06-11 02:21] LABS: BILIRUBIN,URINE NEGATIVE (NEGATIVE); KETONES,URINE NEGATIVE (NEGATIVE); LEUKOCYTE ESTERASE ,URINE NEGATIVE (NEGATIVE); NITRITE,URINE NEGATIVE (NEGATIVE); PH,URINE 7 (5-9); PROTEIN,URINE NEGATIVE (NEGATIVE); UROBILINOGEN,URINE NORMAL (NORMAL)
[2016-06-11] MEDS ORDERED: D5 LR IV SOLUTION 1,000 ML IV SCH ×2 (03:15→07:34)
--- NOTE | 2016-06-11 07:34 | History & Physical ---
History and Physical this patient is a 30-year-old A1 1 white female with an EDC of 4 2615:36] 37-5/7 weeks gestation. She presented with complaint contractions. She was gabrielle every 2-4 minutes. Her contractions spaced out to about 7 or 8 minutes now lasting over a minute patient reports some of them are very mild but others are quite intense. She denies rupture membranes or bleeding. She's had no other problems with this . Group B strep culture done after 35 weeks gestation was negative. Allergies are codeine which causes vomiting Medications are folic acid and baby aspirin daily with Stone vitamins Past medical history, past surgical history, obstetric history, family history, and social histories are per the antepartum record HEENT exam is normal Neck supple no lymphadenopathy no thyromegaly Abdomen is gravid soft nontender nondistended Extremities show no clubbing cyanosis. There is no Homans sign. There is some pretibial pitting edema that is normal. We'll monitor shows contractions every 6-8 minutes sometimes spacing out to 9 or 10 and at times as frequent as every 2-4 minutes. heart rate pattern is normal. Assessment and plan 37-5/7 weeks' gestation with previous and in early labor. Plan will be to proceed with delivery today. 37+ week and early labor previous Allergies and Home Medications Allergies Coded Allergies: Hydrocodone (Unverified Allergy, Mild, 02/15/09) Home Medications Cephalexin 500 Mg Capsule, 500 MG PO TID, (Reported) Vit W-Ca,Fe,FA(<1 mg) 1 Each Tablet, 1 TAB PO DAILY , (Reported) FERNANDO ALMANZA MD Jun 11, 2016 7:34 am
[2016-06-11] MEDS ORDERED: D5 LR IV SOLUTION 1,000 ML IV ONE ×2 (07:44→19:32)
[2016-06-11] MEDS ORDERED: ceFAZolin INJECTION 2,000 MG in NS (IVPB) 50 ML IV ONE (07:45)
[2016-06-11] MEDS ORDERED: MEPERIDINE (DEMEROL) INJ 100 MG/ML IM PRN (07:45)
[2016-06-11] MEDS ORDERED: PROMETHAZINE INJ 25 MG/ML (PHENERGAN) AMP IM PRN (07:45)
[2016-06-11] MEDS ORDERED: metroNIDAZOLE 500MG/100ML IVPB 100 ML IV ONE (07:45)
[2016-06-11] MEDS: KETOROLAC 30 MG/ML VIAL IVP SCH ×3 (07:45→19:33)
[2016-06-11] MEDS ORDERED: MEASLES,MUMPS,RUBELLA 1 EA INJ SC ONE (07:45)
[2016-06-11] MEDS ORDERED: TETANUS,DIPTH,PERTUSS P/F (BOOSTRIX) 0.5 ML VIAL IM ONE (07:45)
[2016-06-11 08:10] LABS: BASOPHILS % (AUTO) 0 % (0-10); EOSINOPHILS # (AUTO) 0.1 10^3/uL (0.0-0.3); EOSINOPHILS % (AUTO) 1 % (0-10); LYMPHOCYTES # (AUTO) 1.9 X 10^3 (1.0-4.0); LYMPHOCYTES % (AUTO) 22 % (12-44); MEAN CORPUSCULAR HEMOGLOBIN 29 PG (25-34); MEAN CORPUSCULAR HGB CONC 33 G/DL (32-36); MEAN CORPUSCULAR VOLUME 86 FL (80-99); MEAN PLATELET VOLUME 9.5 FL (7.4-10.4); MONOCYTES # (AUTO) 0.6 X 10^3 (0.0-1.0); MONOCYTES % (AUTO) 7 % (0-12); NEUTROPHILS # (AUTO) 6.1 X 10^3 (1.8-7.8); NEUTROPHILS % (AUTO) 70 % (42-75); PLATELET COUNT 235 10^3/uL (130-400); RED BLOOD COUNT 3.71 10^6/uL (4.35-5.85); RED CELL DISTRIBUTION WIDTH 13.1 % (10.0-14.5); WHITE BLOOD COUNT 8.6 10^3/uL (4.3-11.0)
[2016-06-11] MEDS: DOCUSATE SODIUM 100 MG (COLACE) CAP PO SCH ×2 (09:00→19:36)
[2016-06-11] MEDS ORDERED: LACTATED RINGERS 1,000 ML IV PRN (10:09)
[2016-06-11] MEDS ORDERED: METOCLOPRAMIDE INJ 10 MG/2 ML (REGLAN) IV NR (10:15)
[2016-06-11] MEDS ORDERED: FAMOTIDINE 20MG/2ML IV (PEPCID) IV NR (10:15)
[2016-06-11] MEDS ORDERED: CITRIC ACID/SOB CIT (BICITRA) 30 ML UDC PO NR (10:15)
[2016-06-11] MEDS: LACTATED RINGERS 1,000 ML IV PRN ×2 (11:38→12:40)
[2016-06-11] MEDS ORDERED: OXYTOCIN/NORMAL SALINE 1,000 ML IV ONE (12:24)
[2016-06-11] MEDS ORDERED: fentaNYL INJECTION 100 MCG/2 ML AMP ONE (12:24)
[2016-06-11] MEDS ORDERED: metroNIDAZOLE 500MG/100ML IVPB 100 ML ONE (13:01)
[2016-06-11] MEDS ORDERED: ceFAZolin 1,000 MG (ANCEF) VIAL ONE (13:01)
[2016-06-11] MEDS: OXYTOCIN/NORMAL SALINE 500 ML IV SCH ×2 (13:16→15:49)
[2016-06-11] MEDS: oxyCODONE/APAP 10/325MG (PERCOCET 10) TABLET PO PRN ×2 (15:45→23:50)
[2016-06-12] MEDS: KETOROLAC 30 MG/ML VIAL IVP SCH (00:43)
[2016-06-12 03:35] VITALS: BP 141/82
[2016-06-12] MEDS: IBUPROFEN 800 MG (MOTRIN) TAB PO SCH ×3 (06:51→22:03)
--- NOTE | 2016-06-12 07:33 | Progress Note-Standard ---
Standard Progress Note Progress Notes/Assess & Plan Progress/Assessment & Plan patient is without complaint. She is ambulating, voiding, tolerating fairly well, denies chest pain, denies shortness of breath, denies headache, denies nausea vomiting, has good pain control. Vital Signs Date Time Temp Pulse Resp B/P (MAP) Pulse Ox O2 Delivery O2 Flow Rate FiO2 06/12/16 03:35 97.8 90 18 141/82 99 Room Air 06/11/16 23:50 97.5 78 18 105/59 98 Room Air 06/11/16 19:35 98.5 97 18 141/85 98 Room Air 06/11/16 16:20 69 18 130/74 98 Room Air 06/11/16 14:56 97.8 74 18 115/68 98 Room Air 06/11/16 11:45 99.3 81 120/70 Room Air I & O 06/12/16 07:00 Intake Total 4650 ml Output Total 825 ml Balance 3825 ml vital signs are stable. Patient is afebrile. Abdomen is benign. The incision is clean dry and intact. extremities show no clubbing or cyanosis. There is no Homans sign. There is some pretibial pitting edema that is normal. assessment and plan postoperative day number 1 status post repeat doing well. Plan is for routine convalescence care today and discharge home tomorrow FERNANDO ALMANZA MD Jun 12, 2016 7:33 am
[2016-06-12] MEDS ORDERED: OXYC-465 PO (07:41)
[2016-06-12] MEDS ORDERED: IBUP-1780 PO (07:41)
[2016-06-12] MEDS ORDERED: DOCU100C37 PO (07:41)
--- NOTE | 2016-06-12 07:43 | Discharge Instructions ---
Discharge Instructions Discharge Medications New, Converted or Re-Newed RX: RX on Chart Patient Instructions Patient Instructions: as directed Return to The Hospital For: as directed Activity & Diet Discharge Diet: No Restrictions Activity as Tolerated: No Orders-Post D/C & Referrals Follow Up Appt: RTC 1 week for incision check. Call to make follow up appt. for patient in 4 to 6 weeks. Wound Care: Remove rose, apply benzoin and steri strips. Activity Per routine post instructions. Diet as tolerated Patient may shower or tub bathe as desired. Continue home meds FERNANDO ALMANZA MD Jun 12, 2016 7:43 am
[2016-06-12 08:25] VITALS: BP 128/79
--- NOTE | 2016-06-12 09:41 | OPERATIVE REPORT ---
PROCEDURE PHYSICIAN: FERNANDO ALMANZA DATE OF PROCEDURE: 06/11/2016 DATE OF DICTATION: 06/11/2016 PREOPERATIVE DIAGNOSIS: Term at 37-5/7 weeks gestation, in early labor with previous . POSTOPERATIVE DIAGNOSIS: Term at 37-5/7 weeks gestation in early labor with previous . OPERATIVE PROCEDURE: Repeat low transverse delivery of a viable male infant with Apgars of 8 and 9 at one and five minutes respectfully. Weight was 8 pounds, 6 ounces. time was 1253. OPERATIVE DESCRIPTION: With the patient in the supine position, under satisfactory spinal anesthesia, she was prepped and draped usual fashion for abdominal surgery. A repeat Pfannenstiel incision made through the skin with a scalpel after Holguin cath was placed in the urinary bladder to dependent drainage. The abdomen was entered in the usual manner. Bladder retractor placed in position, clean scalpel used to make a 4 cm hysterotomy incision transversely across the lower uterine segment that was extended by blunt dissection releasing a small amount of clear fluid. A vigorous viable male was delivered via the uterine incision using Lyons forceps to facilitate the delivery. The was bulb suctioned on delivery of the head. A nuchal cord was easily released and the delivery completed. The bulb suction again as the cord was doubly clamped and cut and the infant passed to the Brooke Pacheco R.N., the pediatric nurse in attendance for delivery. Cord bloods were obtained including an arterial umbilical cord blood gas for a pH. The placenta delivered spontaneously Espinoza. It was normal with a 3 vessel cord and it was sent to pathology for permanent section. The uterus was exteriorized, interior wiped clean with a wet laparotomy sponge. Uterine incision then closed with running locked suture of 2-0 Vicryl. Hemostasis was complete. The uterus was returned to the abdominal cavity. All blood clot and debris removed from the abdominal cavity. With sponge and needle counts correct and hemostasis assured, the anterior parietal peritoneum was closed with running suture of 2-0 Vicryl. The rectus muscles were closed with that suture. The rectus fascia was closed with 2-0 Vicryl. Subcutaneous tissue was closed with 2-0 Vicryl and the skin was stapled. Sponge and needle counts were correct at the end of procedure. Estimated blood loss for procedure around 500 mL. The patient tolerated the procedure well and was transferred to recovery room in stable condition. The infant had this taken stable to the full term nursery under care of nurse Pacheco. Job ID: [id number] Dictated Date: 06/11/2016 13:14:56 Toll Collector Supervisor Date: 06/12/2016 09:36:29 / french
[2016-06-12] MEDS: DOCUSATE SODIUM 100 MG (COLACE) CAP PO SCH ×2 (09:46→22:03)
[2016-06-12 12:00] VITALS: BP 111/71
--- NOTE | 2016-06-12 12:29 | Anesthesia-Regional Post-Op ---
Regional Patient Condition Mental Status: Alert, Oriented x3 Circulation: Same as Pre-Op Headache: Absent Sensation: Full Recovery Motor Block: Absent Post Op Complications Complications None Follow Up Care/Instructions Patient Instructions None needed. Anesthesia/Patient Condition Patient is doing well, no complaints, stable vital signs, no apparent adverse anesthesia problems. No complications reported per nursing. GEOFF FAIRCHILD CRNA Jun 12, 2016 12:29
[2016-06-12] MEDS: oxyCODONE/APAP 10/325MG (PERCOCET 10) TABLET PO PRN ×2 (13:53→22:03)
[2016-06-12 18:10] VITALS: BP 113/60
[2016-06-12 22:00] VITALS: BP 118/69
[2016-06-12 23:55] LABS: BILIRUBIN,URINE NEGATIVE (NEGATIVE); KETONES,URINE NEGATIVE (NEGATIVE); LEUKOCYTE ESTERASE ,URINE 1+ (NEGATIVE); NITRITE,URINE NEGATIVE (NEGATIVE); PH,URINE 6 (5-9); PROTEIN,URINE NEGATIVE (NEGATIVE); UROBILINOGEN,URINE NORMAL (NORMAL)
[2016-06-13 00:08] LABS: CALCIUM OXALATE CRYSTALS,UR MODERATE /LPF; WBC,URINE RARE /HPF
[2016-06-13 03:22] VITALS: BP 95/59
[2016-06-13] MEDS: IBUPROFEN 800 MG (MOTRIN) TAB PO SCH ×2 (03:22→09:33)
--- NOTE | 2016-06-13 07:50 | Progress Note-Standard ---
Standard Progress Note Progress Notes/Assess & Plan Progress/Assessment & Plan patient is without complaint. She is ambulating, voiding, tolerating fairly well, denies chest pain, denies shortness of breath, denies headache, denies nausea vomiting, has good pain control. Vital Signs Date Time Temp Pulse Resp B/P (MAP) Pulse Ox O2 Delivery O2 Flow Rate FiO2 06/12/16 03:35 97.8 90 18 141/82 99 Room Air 06/11/16 23:50 97.5 78 18 105/59 98 Room Air 06/11/16 19:35 98.5 97 18 141/85 98 Room Air 06/11/16 16:20 69 18 130/74 98 Room Air 06/11/16 14:56 97.8 74 18 115/68 98 Room Air 06/11/16 11:45 99.3 81 120/70 Room Air I & O 06/12/16 07:00 Intake Total 4650 ml Output Total 825 ml Balance 3825 ml vital signs are stable. Patient is afebrile. Abdomen is benign. The incision is clean dry and intact. extremities show no clubbing or cyanosis. There is no Homans sign. There is some pretibial pitting edema that is normal. assessment and plan postoperative day number 1 status post repeat doing well. Plan is for routine convalescence care today and discharge home tomorrow June 13, 2016 Patient is without complaint. She is ambulating, voiding, tolerating by mouth well, has good pain control, and is requesting discharge home. Vital Signs Date Time Temp Pulse Resp B/P (MAP) Pulse Ox O2 Delivery O2 Flow Rate FiO2 06/13/16 03:22 97.0 71 18 95/59 98 Room Air 06/12/16 22:00 98.1 88 18 118/69 99 Room Air 06/12/16 18:10 98.4 81 18 113/60 99 Room Air 06/12/16 12:00 98.4 82 20 111/71 98 Room Air 06/12/16 08:25 98.4 82 18 128/79 98 Room Air I & O 06/13/16 07:00 Intake Total 3000 ml Output Total 2300 ml Balance 700 ml signs are stable. Patient afebrile. Fundus is firm below the umbilicus and nontender. Incision is clean dry and intact. Extremities show no clubbing cyanosis. There is fairly notable pretibial pitting edema that is within the normal range. There is no Homans sign. Assessment and plan postoperative day number 2 status post repeat doing well. Plan is for discharge home with follow-up in clinic Final Diagnosis 37-5/7 weeks' gestation repeat FERNANDO ALMANZA MD Jun 13, 2016 7:50 am
[2016-06-13 08:00] VITALS: BP 102/64
[2016-06-13] MEDS: DOCUSATE SODIUM 100 MG (COLACE) CAP PO SCH (09:33)
[2016-06-13 12:00] VITALS: BP 132/84
[2016-06-13] MEDS ORDERED: MEASLES,MUMPS,RUBELLA 1 EA INJ ONE (12:39)
[2016-06-13] MEDS ORDERED: TETANUS,DIPTH,PERTUSS P/F (BOOSTRIX) 0.5 ML VIAL IM ONE (12:49)
== END 2016-06-13 16:05 | disposition home or self-care (01) | DRG 766 ==
LOC: LDRP 01:38 → WSo 01:38 → LDRP 07:58 → WSo 07:58 → LDRP 12:59
PROVIDERS: ADMIT Obstetrics & Gynecology; ATTEND Obstetrics & Gynecology
PROC: 10D00Z1 Extraction of Products of Conception, Low, Open Approach (ICD-10-PCS; principal; 2016-06-11 12:29)
DX: O34.211 Maternal care for low transverse scar from previous cesarean delivery (principal); O69.81X0 Labor and delivery complicated by cord around neck, without compression, not applicable or unspecified; Z37.0 Single live birth; Z3A.37 37 weeks gestation of pregnancy; Z23 Encounter for immunization
CPT/HCPCS: 36415; 81000; 85025; 86850; 86900; 86901; 87081; 87088; 90707; 90715; 94664; 99212

== ENCOUNTER 2016-07-10 10:23 | Outpatient (RCR) | payer OTHER ==
[~2016-07-10 10:23] MED LIST changes: +CEPH-507 PO; +DOCU100C37 PO; +IBUP-1780 PO
[2016-07-19 20:39] LABS: STONE RISK AMMONIUM 24 mEq/24hr (14-62); STONE RISK BRUSHITE 0.53 (< 2.00); STONE RISK CA OXALATE 1.61 (< 2.00); STONE RISK CALCIUM 62 mg/day (< 250); STONE RISK CITRATE 120 mg/day (> 320); STONE RISK CREATININE 1699 mg/day (600-1800); STONE RISK MAGNESIUM 87 mg/day (> 60); STONE RISK OXALATE 52 mg/day (< 45); STONE RISK PH 5.8 (5.5-7.0); STONE RISK PHOSPHOROUS 862 mg/day (< 1100); STONE RISK POTASSIUM 55 mEq/24hr (19-135); STONE RISK SODIUM 155 mEq/24hr (< 200); STONE RISK STRUVITE 0.33 (< 75.00); STONE RISK SULFITE 17 mmol/day (< 30); STONE RISK TOTAL VOLUME 1.24 L/day (> 2.00); STONE RISK URIC ACID 812 mg/day (< 700); STONE RISK URIC ACID SAT 3.81 (< 2.00)
== END 2016-10-08 | disposition home or self-care (01) ==
LOC: LAB 10:23
PROVIDERS: ATTEND Urology
DX: N20.9 Urinary calculus, unspecified (principal)
CPT/HCPCS: 36415; 82140; 82340; 82507; 82570; 83735; 83945; 83986; 84105; 84133; 84300; 84392; 84560

== ENCOUNTER 2018-11-04 05:28 | Outpatient (CLI) | payer OTHER ==
[~2018-11-04] VITALS: Ht 167.6 cm; Wt 101.2 kg
[2018-11-04] MEDS ORDERED: NORG1TAB14 PO (11:31)
[2018-11-04] MEDS ORDERED: METF-397 PO (11:31)
[2018-11-04] MEDS ORDERED: POTA15TA PO (11:31)
== END 2018-11-04 13:32 | disposition home or self-care (01) ==
LOC: PREOP 05:28
PROVIDERS: ATTEND Obstetrics & Gynecology
DX: Z01.818 Encounter for other preprocedural examination (principal)

== ENCOUNTER 2018-11-07 11:05 | Day surgery (SDC) | payer OTHER ==
[~2018-11-07] VITALS: Ht 167.6 cm; Wt 99.3 kg
[2018-11-07] VITALS (11 sets, daily range): BP systolic 107–137; BP diastolic 70–94
[~2018-11-07 11:05] MED LIST changes: +METF-397 PO; +NORG1TAB14 PO; +POTA15TA PO
[2018-11-07] MEDS ORDERED: LACTATED RINGERS 1,000 ML IV PRN (11:35)
[2018-11-07] MEDS ORDERED: ceFAZolin INJECTION 1,000 MG in WATER (STERILE) FOR INJECTION 10 ML IV ONE (11:45)
[2018-11-07 11:58] LABS: BASOPHILS % (AUTO) 0 % (0-10); EOSINOPHILS # (AUTO) 0.3 10^3/uL (0.0-0.3); EOSINOPHILS % (AUTO) 3 % (0-10); HEMATOCRIT 40 % (35-52); HEMOGLOBIN 13.4 G/DL (11.5-16.0); LYMPHOCYTES # (AUTO) 2.9 X 10^3 (1.0-4.0); LYMPHOCYTES % (AUTO) 33 % (12-44); MEAN CORPUSCULAR HEMOGLOBIN 29 PG (25-34); MEAN CORPUSCULAR HGB CONC 33 G/DL (32-36); MEAN CORPUSCULAR VOLUME 87 FL (80-99); MEAN PLATELET VOLUME 9.1 FL (7.4-10.4); MONOCYTES # (AUTO) 0.5 X 10^3 (0.0-1.0); MONOCYTES % (AUTO) 5 % (0-12); NEUTROPHILS # (AUTO) 5.2 X 10^3 (1.8-7.8); NEUTROPHILS % (AUTO) 58 % (42-75); PLATELET COUNT 343 10^3/uL (130-400); RED CELL DISTRIBUTION WIDTH 12.7 % (10.0-14.5); WHITE BLOOD COUNT 8.9 10^3/uL (4.3-11.0)
[2018-11-07] MEDS ORDERED: DEXAMETHASONE 10 MG/ML (DECADRON) 1 ML VIAL ONE (12:37)
[2018-11-07] MEDS ORDERED: ONDANSETRON 4 MG/2 ML (SDV) Z0FRAN ONE (12:37)
[2018-11-07] MEDS ORDERED: LIDOCAINE 2% 20 ML (XYLOCAINE) VIAL ONE (12:38)
[2018-11-07] MEDS ORDERED: MIDAZOLAM 2 MG/2 ML (VERSED) VIAL ONE (12:38)
[2018-11-07] MEDS ORDERED: fentaNYL INJECTION 100 MCG/2 ML AMP ONE (12:38)
[2018-11-07] MEDS ORDERED: SEVOFLURANE (ULTANE) 15 ML INHAL SOLN ONE ×2 (13:55→14:16)
[2018-11-07] MEDS ORDERED: proPOfol 200 MG/20 ML (DIPRIVAN) VIAL IV ONE (14:16)
[2018-11-07] MEDS ORDERED: KETOROLAC 30 MG/ML VIAL ONE (14:16)
--- NOTE | 2018-11-07 14:34 | Progress Note-Pre Operative ---
Pre-Operative Progress Note H&P Reviewed The H&P was reviewed, patient examined and no changes noted. Date Seen by Provider: Nov 07, 2018 Time Seen by Provider: 13:34 Date H&P Reviewed: Nov 07, 2018 Time H&P Reviewed: 13:34 Pre-Operative Diagnosis: DUB / Mass FERNANDO ALMANZA MD Nov 07, 2018 14:34
[2018-11-07] MEDS ORDERED: D5 LR IV SOLUTION 1,000 ML IV SCH (14:35)
--- NOTE | 2018-11-07 14:35 | Progress Note-Post Operative ---
Post-Operative Progess Note Surgeon (s)/Hay Buckler (s) Surgeon FERNANDO ALMANZA MD Hay Buckler: no Pre-Operative Diagnosis DUB / Mass Post-Operative Diagnosis same Procedure & Operative Findings Date of Procedure 11/07/18 Procedure Performed/Findings hysteroscopy with D& C remove and replace copper T Anesthesia Type GEta Estimated Blood Loss Estimated blood loss (mL): min Specimens/Packing Specimens Removed directed bx and curettings FERNANDO ALMANZA MD Nov 07, 2018 14:35
--- NOTE | 2018-11-07 14:37 | Discharge Instructions ---
Discharge Instructions Discharge Medications New, Converted or Re-Newed RX: RX on Chart Activity & Diet Discharge Diet: No Restrictions Activity as Tolerated: No Orders-Post D/C & Referrals Follow Up Appt: Call to make follow up appt. for patient in 2 weeks. Activity: Rest for 24 hours, than as tolerated. Diet: As tolerated-Clear Liquids only if nauseated. Tomorrow, may shower or tub bathe as desired. No driving for 24 hours, no alcoholic beverages for 24 hours, and nothing per vagina (no tampons, douching, or intercoarse) for 2 weeks. Patient to return to the clinic as soon as possible for: Temperature greater than 101F, Severe Pain, Foul discharge from incision or vagina, Excessive Bleeding (more than a period). FERNANDO ALMANZA MD Nov 07, 2018 14:37
[2018-11-07] MEDS ORDERED: fentaNYL INJECTION 100 MCG/2 ML AMP IVP ONE (14:45)
[2018-11-07] MEDS ORDERED: MEPERIDINE (DEMEROL) INJ 100 MG/ML IM ONE (14:45)
[2018-11-07] MEDS ORDERED: ONDANSETRON 4 MG/2 ML (SDV) Z0FRAN IVP PRN ×2 (14:45)
[2018-11-07] MEDS ORDERED: KETOROLAC 30 MG/ML VIAL IVP ONE (14:45)
[2018-11-07] MEDS ORDERED: PROMETHAZINE INJ 25 MG/ML (PHENERGAN) AMP IM ONE (14:45)
[2018-11-07] MEDS ORDERED: ESTROGENS CONJ IV 25 MG/5 ML (PREMARIN) VIAL IVP ONE (14:45)
[2018-11-07] MEDS ORDERED: oxyCODONE/APAP 5/325MG (PERCOCET 5) TABLET PO PRN (14:45)
--- NOTE | 2018-11-07 14:51 | Anesthesia-General Post-Op ---
General Patient Condition Mental Status/LOC: Same as Preop Cardiovascular: Satisfactory Nausea/Vomiting: Absent Respiratory: Satisfactory Pain: Controlled Complications: Absent Post Op Complications Complications None Follow Up Care/Instructions Patient Instructions None needed. Anesthesia/Patient Condition Patient Condition Patient is doing well, no complaints, stable vital signs, no apparent adverse anesthesia problems. PAVITHRA MORENO DO Nov 07, 2018 14:50
--- NOTE | 2018-11-07 15:45 | OPERATIVE REPORT ---
DATE OF SERVICE: 11/07/2018 PREOPERATIVE DIAGNOSES: Dysfunctional uterine bleeding and intrauterine mass. POSTOPERATIVE DIAGNOSES: Dysfunctional uterine bleeding and intrauterine mass. DICTATION ENDS HERE Job ID: [id number] DocumentID: [id number] Dictated Date: 11/07/2018 14:19:08 Cue Selector Date: 11/07/2018 15:44:35 Dictated By: FERNANDO ALMANZA MD This document can be deleted in its entirety as I did redictate the procedure. Thank you ADALBERTO
--- NOTE | 2018-11-07 15:58 | OPERATIVE REPORT ---
DATE OF SERVICE: 11/07/2018 PREOPERATIVE DIAGNOSES: Dysfunctional uterine bleeding and intrauterine mass. POSTOPERATIVE DIAGNOSES: Dysfunctional uterine bleeding and intrauterine mass with pathology pending. OPERATIVE PROCEDURE: Hysteroscopy with directed biopsy and D and C as well as removal and replacement of a copper T IUD. OPERATIVE DESCRIPTION: With the patient in the supine position under satisfactory general anesthesia, she was repositioned in dorsal lithotomy position in the [facility] and prepped and draped in the usual fashion for vaginal surgery. Weighted speculum placed in posterior fornix of vagina, cervix exposed and grasped anteriorly with single tooth tenaculum. Uterus sounded to 11 cm with uterine sound. The cervix was then serially dilated with Mitul dilators to accommodate a hysteroscope, which was introduced using LR as a distending medium. There were no IUD strings visible at the cervical os were palpable with an instrument prior to the dilation. At this point, the IUD was seemed completely contained in the uterine cavity with the strings completely contained therein as well. A grasper was used to extract the IUD by grasping the strings and bring it out through the cervix. The IUD itself was held and kept aseptic for replacement later. The endometrial cavity was examined. There was a polypoid mass near the right tubal ostium. This was biopsied off directly and sent to pathology labeled as such. The posterior vaginal wall retracted. The posterior uterine wall had a bulging area near the lower uterine segment on the posterior wall. This was biopsied. This appeared to be consistent with a fibroid. The endometrial cavity was now sharply curettaged in all 4 quadrants with removal of a small amount of additional tissue that was sent as endometrial curettings. The hysteroscope was reintroduced. There was no significant bleeding. There was no remaining abnormal pathology. The hysteroscope was removed. There was some bleeding from the puncture sites and IUD. This was touched with silver nitrate to effect hemostasis. The IUD itself was loaded into an introducer and placed in the uterine cavity in the usual manner with plans for followup outpatient for TVS to confirm its position and integrity. With sponge, needle counts correct, hemostasis assured. The procedure was terminated. There was no bleeding from the cervical os. There was no bleeding from the puncture sites at this point. The patient was uneventfully awakened from her general anesthesia and transferred to recovery room in stable condition with plans for discharge home PAR. BLOOD LOSS: Minimal. There was total of 900 mL of LR was used and almost that same amount was recovered. Job ID: [id number] DocumentID: [id number] Dictated Date: 11/07/2018 14:25:38 Type Cutter Date: 11/07/2018 15:57:38 Dictated By: FERNANDO ALMANZA MD
== END 2018-11-07 16:30 | disposition home or self-care (01) ==
LOC: SDC 11:05
PROVIDERS: ATTEND Obstetrics & Gynecology
DX: N93.8 Other specified abnormal uterine and vaginal bleeding (principal); Z30.433 Encounter for removal and reinsertion of intrauterine contraceptive device; N84.0 Polyp of corpus uteri; E11.9 Type 2 diabetes mellitus without complications; N20.0 Calculus of kidney; Z79.891 Long term (current) use of opiate analgesic; Z79.4 Long term (current) use of insulin; Z79.899 Other long term (current) drug therapy
CPT/HCPCS: 36415; 82962; 84703; 85025; 87081

== ENCOUNTER 2019-02-20 05:37 | Outpatient (CLI) | payer OTHER ==
[~2019-02-20] VITALS: Ht 167 cm; Wt 99.0 kg
[2019-02-20] MEDS ORDERED: DULO60CA6 PO (10:17)
[2019-02-27] MEDS ORDERED: OXYC1TAB87 PO (12:47)
[2019-02-27] MEDS ORDERED: IBUP-1780 PO (12:47)
== END 2019-02-20 10:25 | disposition home or self-care (01) ==
LOC: PREOP 05:37
PROVIDERS: ATTEND Obstetrics & Gynecology
DX: Z01.818 Encounter for other preprocedural examination (principal)

== ENCOUNTER → 2019-04-03 | Outpatient (CLI) | payer OTHER ==
[~2019-04-03] MED LIST changes: +DULO60CA6 PO; +OXYC1TAB87 PO
--- NOTE | 2019-04-03 16:02 | Diagnostic Imaging Report ---
INDICATION: History of renal stones, follow up. TECHNIQUE: Two supine view of the abdomen 3:39 p.m. CORRELATION STUDY: 04/11/2016. FINDINGS: 4 mm calcification projects over the [id number] pole of the left kidney. There does appear to be small calcification over the inferior pole of the right kidney. Also present are single faint stones in bilateral hemipelves. These are nonspecific but could potentially be in the course of the expected distal ureters. Overlying bowel gas demonstrates no evidence for obstruction. Osseous structures are unremarkable. Cholecystectomy clips in the right upper quadrant. IMPRESSION: 1. Small faint calcifications over bilateral renal silhouettes. 2. Small faint calcifications in the bilateral hemipelves. These may be of no significance, however given positioning, possibility of distal ureteral stones is not excluded. Correlation with symptoms. Dictated by: Dictated on workstation # [id number]
== END ==
LOC: RAD 15:24
PROVIDERS: ATTEND Urology
DX: Z87.442 Personal history of urinary calculi (principal)
CPT/HCPCS: 74018

== ENCOUNTER → 2019-06-23 | Outpatient (CLI) | payer OTHER ==
[~2019-06-23] MED LIST changes: +LURA20TA PO; +TMSL.4C PO
--- NOTE | 2019-06-23 14:50 | Diagnostic Imaging Report ---
EXAMINATION: AP supine abdomen. INDICATION: Hematuria. Patient with history of nephrolithiasis. COMPARISON: Multiple prior exams, most recent performed on 04/03/2019. FINDINGS: The upper abdomen is partially excluded from the [id number]. There is a 6 mm calcification overlying the expected region of the lower pole collecting system of the left kidney. Punctate calcifications are demonstrated in the pelvis, likely related to phleboliths. There is a nonobstructive bowel gas pattern. Gas and stool are noted in the colon with moderate retained stool, most prominent in the right colon. No evidence of pneumoperitoneum on this supine study. No acute osseous abnormality is appreciated. IMPRESSION: There is a 6 mm calcification overlying the left lower kidney, presumably representing a calyceal calculus. A similar finding was seen on prior abdominal radiographs performed on 04/03/2019. No significant change in punctate calcifications in the region of the pelvis. Dictated by: Dictated on workstation # [id number]
== END ==
LOC: RAD 14:04
PROVIDERS: ATTEND Urology
DX: N20.1 Calculus of ureter (principal); N20.0 Calculus of kidney
CPT/HCPCS: 74018

== ENCOUNTER 2019-06-24 07:23 | Day surgery (SDC) | payer OTHER ==
[2019-06-24] VITALS (9 sets, daily range): BP systolic 113–131; BP diastolic 73–95
[~2019-06-24] VITALS: Ht 170.2 cm; Wt 105.9 kg
[~2019-06-24 07:23] MED LIST changes: -LURA20TA PO; -TMSL.4C PO
--- NOTE | 2019-06-24 07:35 | NUR ---
PATIENTS STATES NO ALLERGY TO CODEINE OR HYDROCODONE. THIS RN TO REMOVE. GEO GREWAL NOTIFIED
[2019-06-24] MEDS ORDERED: cefTRIAXone 1,000 MG IV (ROCEPHIN) VIAL ONE (07:40)
[2019-06-24] MEDS ORDERED: WATER (STERILE) FOR INJECTION 10 ML ONE (07:40)
[2019-06-24] MEDS ORDERED: cefTRIAXone FOR IV USE 1,000 MG in WATER (STERILE) FOR INJECTION 10 ML IV ONE (07:45)
--- NOTE | 2019-06-24 07:48 | Progress Note-Pre Operative ---
Pre-Operative Progress Note H&P Reviewed The H&P was reviewed, patient examined and no changes noted. Date Seen by Provider: Jun 24, 2019 Time Seen by Provider: 07:48 Date H&P Reviewed: Jun 24, 2019 Time H&P Reviewed: 07:48 Pre-Operative Diagnosis: RT URETERAL STONE JENNIFER MISHRA MD Jun 24, 2019 07:48
[2019-06-24] MEDS: LACTATED RINGERS 1,000 ML IV PRN ×2 (07:51→10:23)
[2019-06-24] MEDS ORDERED: CATHETER FLUSH 10 ML SYR IV PRN (08:00)
[2019-06-24] MEDS ORDERED: LURA20TA PO (08:11)
--- NOTE | 2019-06-24 08:36 | Diagnostic Imaging Report ---
INDICATION: Right ureteric calculus Supine view of the abdomen is obtained. Correlation is made to examination of one day earlier. There is moderate amount of stool throughout the colon which limits evaluation for abdominal calcification. The 0.6 cm calculus projecting over lower pole left kidney is not well seen and is likely obscured. There is questionable punctate calcification projected over the upper pole of the left kidney which may represent fragmented calculus. Surgical suture material seen in the pelvis. IMPRESSION: Possible fragmented calculus projecting over the upper pole left kidney which is largely obscured. No lower pole stone is identified on the current exam. Dictated by: Dictated on workstation # [id number]
[2019-06-24] MEDS ORDERED: ROCURONIUM 10 MG/ML 5 ML SYRINGE IV ONE (08:40)
[2019-06-24] MEDS ORDERED: LIDOCAINE PF 2% 5 ML (XYLOCAINE) VIAL ONE (08:40)
[2019-06-24] MEDS ORDERED: ONDANSETRON 4 MG/2 ML (SDV) Z0FRAN ONE (08:40)
[2019-06-24] MEDS ORDERED: proPOfol 200 MG/20 ML (DIPRIVAN) VIAL IV ONE (08:40)
[2019-06-24] MEDS ORDERED: fentaNYL INJECTION 100 MCG/2 ML AMP ONE (08:40)
[2019-06-24] MEDS ORDERED: MIDAZOLAM 2 MG/2 ML (VERSED) VIAL ONE (08:41)
[2019-06-24] MEDS ORDERED: SEVOFLURANE (ULTANE) 15 ML INHAL SOLN ONE ×2 (08:42→09:30)
[2019-06-24] MEDS ORDERED: FUROSEMIDE 40 MG/4 ML INJ (LASIX) ONE (09:30)
[2019-06-24] MEDS ORDERED: KETOROLAC 30 MG/ML VIAL ONE (09:30)
--- NOTE | 2019-06-24 09:45 | Progress Note-Post Operative ---
Post-Operative Progess Note Surgeon (s)/Roll Tension Tester (s) Surgeon JENNIFER MISHRA MD Roll Tension Tester: NONE Pre-Operative Diagnosis RT URETERAL STONE Post-Operative Diagnosis SAME Procedure & Operative Findings Date of Procedure 06/24/19 Procedure Performed/Findings CYSTOSCOPY, INSERTION OF RT URETERAL CATHETER, RT RETROGRADE UROGRAM, AND RT ESWL Anesthesia Type GENERAL Estimated Blood Loss Estimated blood loss (mL): NONE Specimens/Packing Specimens Removed NONE Packing: NONE JENNIFER MISHRA MD Jun 24, 2019 09:45
--- NOTE | 2019-06-24 09:48 | Discharge Inst-Urology ---
Discharge Inst-Urology Reconcile Patient Problems Problems Reviewed?: Yes Final Diagnosis RT URETERAL AND LT RENAL STONES Patient Instructions/Follow Up Plan/Assessment/Instructions Please make appointment to been seen in office Wednesday 07/05, KUB prior to it KUB on way home Post ESWL instructions Increase oral fluids for 48 hours and then as needed. Diet and Activity as tolerated. If questions or concerns contact your physician Or seek help at emergency department. JENNIFER MISHRA MD Jun 24, 2019 09:48
[2019-06-24] MEDS ORDERED: MEPERIDINE (DEMEROL) INJ 50 MG/ML ONE (10:06)
[2019-06-24] MEDS ORDERED: PROMETHAZINE INJ 25 MG/ML (PHENERGAN) AMP IVP ONE (10:15)
[2019-06-24] MEDS ORDERED: HYDROmorphone 2 MG/ML VIAL (DILAUDID) IV ONE (10:15)
[2019-06-24] MEDS ORDERED: PROMETHAZINE INJ 25 MG/ML (PHENERGAN) AMP ONE (10:15)
[2019-06-24] MEDS ORDERED: MEPERIDINE (DEMEROL) INJ 50 MG/ML IVP ONE (10:15)
[2019-06-24] MEDS ORDERED: ONDANSETRON 4 MG/2 ML (SDV) Z0FRAN IVP PRN (10:15)
[2019-06-24] MEDS ORDERED: morphine INJ 10 MG/ML 1ML (SYR OR VIAL) IVP ONE (10:15)
[2019-06-24] MEDS ORDERED: TMSL.4C PO (11:11)
[2019-06-24] MEDS ORDERED: NITR-65 PO (11:11)
[2019-06-24] MEDS ORDERED: TRM50T PO (11:11)
--- NOTE | 2019-06-24 11:13 | Anesthesia-General Post-Op ---
General Patient Condition Mental Status/LOC: Same as Preop Cardiovascular: Satisfactory Nausea/Vomiting: Absent Respiratory: Satisfactory Pain: Controlled Complications: Absent Post Op Complications Complications None Follow Up Care/Instructions Patient Instructions None needed. Anesthesia/Patient Condition Patient Condition Patient is doing well, no complaints, stable vital signs, no apparent adverse anesthesia problems. No complications reported per nursing. OLIVE ESPINAL CRNA Jun 24, 2019 11:13
--- NOTE | 2019-06-24 12:10 | Diagnostic Imaging Report ---
INDICATION: Status post lithotripsy. Time of exam 11:53 AM Correlation is made with prior study earlier same day. Bowel gas pattern is unremarkable. Calcific density overlies the upper pole left kidney. No other radiopaque urinary tract calculi are detected. IMPRESSION: Left upper pole renal calculus. Dictated by: Dictated on workstation # [id number]
[2019-06-24] MEDS ORDERED: IOPAMIDOL 61% 30 ML (ISOVUE 300) VIAL ONE (12:31)
--- NOTE | 2019-06-24 13:01 | OPERATIVE REPORT ---
DATE OF SERVICE: 06/24/2019 PREOPERATIVE DIAGNOSIS: Right proximal ureteral stone. POSTOPERATIVE DIAGNOSES: 1. Right proximal ureteral stone. 2. Left renal stone. OPERATION PERFORMED: Cystoscopy, insertion of right ureteral catheter. Retrograde urogram and right ESWL. SURGEON: Dakota Mishra MD ANESTHESIA: General. COMPLICATIONS: None. DESCRIPTION OF PROCEDURE: Under satisfactory general anesthesia, the patient in lithotomy position, genitalia were prepped and draped in the usual sterile fashion. Cystoscope was introduced in the bladder. The right ureteral orifice was visualized. A 5-Maltese ureteral catheter was inserted into the orifice and passed fluoroscopically confirming the position of the stone at L3 as suspected on the KUB this morning. I went ahead and take the catheter to the patient thigh. After emptying the bladder, removing the cystoscope, I moved the patient to the ESWL bed supine. The stone was localized and confirmed with retrograde urogram as a filling defect. Shock waves were directed at kV of 6. Total of 1500 shocks, we could not see the stone anymore and the contrast was flowing very nicely from the kidney all the way down with no problems. The patient tolerated the procedure and anesthesia well and was sent to recovery room in stable condition. PLAN: In 2 weeks after she passes the fragments, we will address the left renal stones. Job ID: [id number] DocumentID: [id number] Dictated Date: 06/24/2019 09:56:15 Advertising Representative Date: 06/24/2019 12:59:34 Dictated By: DAKOTA MISHRA MD
== END 2019-06-24 12:15 | disposition home or self-care (01) ==
LOC: SDC 07:23
PROVIDERS: ATTEND Urology
DX: N20.2 Calculus of kidney with calculus of ureter (principal); E66.9 Obesity, unspecified; E28.2 Polycystic ovarian syndrome; F17.210 Nicotine dependence, cigarettes, uncomplicated; Z68.36 Body mass index [BMI] 36.0-36.9, adult; Z79.899 Other long term (current) drug therapy; Z88.5 Allergy status to narcotic agent
CPT/HCPCS: 74018; 84703; 87081

== ENCOUNTER → 2019-07-06 | Outpatient (CLI) | payer OTHER ==
[~2019-07-06] MED LIST changes: +LURA20TA PO; +TMSL.4C PO
--- NOTE | 2019-07-06 13:20 | Diagnostic Imaging Report ---
INDICATION: Nephrolithiasis KUB 12:16 PM There is a 2.5 mm opacity projected over the midportion of the left kidney. Right kidney is largely obscured by fecal material. IMPRESSION: Suspected left nephrolithiasis. Evaluation of the right kidney was obscured by overlying fecal material. Dictated by: Dictated on workstation # [id number]
== END ==
LOC: RAD 12:57
PROVIDERS: ATTEND Urology
DX: N20.2 Calculus of kidney with calculus of ureter (principal)
CPT/HCPCS: 74018

== ENCOUNTER → 2019-07-17 | Outpatient (CLI) | payer OTHER ==
[~2019-07-17] MED LIST changes: +TRAM50TA3 PO
--- NOTE | 2019-07-17 11:54 | Diagnostic Imaging Report ---
INDICATION: Nephrolithiasis. TECHNIQUE: Single supine view of the abdomen 11:28 AM CORRELATION STUDY: 07/06/2019 FINDINGS: 3 mm calcification over left renal silhouette persisting. Additional faint calcification projects just medial to the left renal silhouette, appears unchanged. Definitive calcification of the right renal silhouettes and/or expected course right ureter is not demonstrated. Overlying bowel gas and stool present. Cholecystectomy clips in the right upper quadrant. IMPRESSION: 1. Unchanged calcification left renal silhouette. Very questionable calcification just medial to left kidney. No definitive calcification along the expected course of either ureter. Dictated by: Dictated on workstation # [id number]
== END ==
LOC: RAD 10:54
PROVIDERS: ATTEND Urology
DX: N20.2 Calculus of kidney with calculus of ureter (principal)
CPT/HCPCS: 74018

== ENCOUNTER 2019-07-20 11:03 | Outpatient (RCR) | payer OTHER ==
[~2019-07-20] VITALS: Ht 170.2 cm; Wt 105.9 kg
[~2019-07-20 11:03] MED LIST changes: -TRAM50TA3 PO
== END 2019-07-20 11:04 | disposition home or self-care (01) ==
LOC: PREOP 11:03
PROVIDERS: ATTEND Urology
DX: Z01.818 Encounter for other preprocedural examination (principal)

== ENCOUNTER 2019-07-22 06:07 | Day surgery (SDC) | payer OTHER ==
[~2019-07-22] VITALS: Ht 170.2 cm; Wt 100.9 kg
[2019-07-22] VITALS (10 sets, daily range): BP systolic 90–110; BP diastolic 59–87
[2019-07-22] MEDS ORDERED: cefTRIAXone FOR IV USE 1,000 MG in WATER (STERILE) FOR INJECTION 10 ML IV ONE (06:15)
[2019-07-22] MEDS: LACTATED RINGERS 1,000 ML IV PRN ×2 (06:41→07:40)
[2019-07-22] MEDS ORDERED: fentaNYL INJECTION 100 MCG/2 ML AMP ONE (06:51)
[2019-07-22] MEDS ORDERED: MIDAZOLAM 2 MG/2 ML (VERSED) VIAL ONE (06:51)
[2019-07-22] MEDS ORDERED: WATER (STERILE) FOR INJECTION 10 ML ONE (06:54)
[2019-07-22] MEDS ORDERED: cefTRIAXone 1,000 MG IV (ROCEPHIN) VIAL ONE (06:54)
--- NOTE | 2019-07-22 06:55 | Progress Note-Pre Operative ---
Pre-Operative Progress Note H&P Reviewed The H&P was reviewed, patient examined and no changes noted. Date Seen by Provider: July 22, 2019 Time Seen by Provider: 06:55 Date H&P Reviewed: July 22, 2019 Time H&P Reviewed: 06:55 Pre-Operative Diagnosis: LT RENAL STONE JENNIFER MISHRA MD July 22, 2019 06:55
--- NOTE | 2019-07-22 07:15 | Progress Note-Post Operative ---
Post-Operative Progess Note Surgeon (s)/Dyer Helper (s) Surgeon JENNIFER MISHRA MD Dyer Helper: NONE Pre-Operative Diagnosis LT RENAL STONE Post-Operative Diagnosis SAME Procedure & Operative Findings Date of Procedure 07/22/19 Procedure Performed/Findings LT ESWL Anesthesia Type GENERAL Estimated Blood Loss Estimated blood loss (mL): NONE Specimens/Packing Specimens Removed NONE Packing: NONE JENNIFER MISHRA MD July 22, 2019 07:15
--- NOTE | 2019-07-22 07:17 | Discharge Inst-Urology ---
Discharge Inst-Urology Reconcile Patient Problems Problems Reviewed?: Yes Final Diagnosis LT RENAL STONE Patient Instructions/Follow Up Plan/Assessment/Instructions Please make appointment to been seen in office in 2 weeks. KUB prior to it KUB on way home Post ESWL instructions Increase oral fluids for 48 hours and then as needed. Diet and Activity as tolerated. If questions or concerns contact your physician Or seek help at emergency department. JENNIFER MISHRA MD July 22, 2019 07:17
[2019-07-22] MEDS ORDERED: ONDANSETRON 4 MG/2 ML (SDV) Z0FRAN ONE (07:19)
[2019-07-22] MEDS ORDERED: DEXAMETHASONE 10 MG/ML (DECADRON) 1 ML VIAL ONE (07:19)
[2019-07-22] MEDS ORDERED: FUROSEMIDE 40 MG/4 ML INJ (LASIX) ONE (07:19)
[2019-07-22] MEDS ORDERED: proPOfol 200 MG/20 ML (DIPRIVAN) VIAL IV ONE (07:19)
[2019-07-22] MEDS ORDERED: LIDOCAINE PF 2% 5 ML (XYLOCAINE) VIAL ONE (07:19)
[2019-07-22] MEDS ORDERED: KETOROLAC 30 MG/ML VIAL ONE (07:19)
[2019-07-22] MEDS ORDERED: morphine INJ 10 MG/ML 1ML (SYR OR VIAL) IVP ONE (08:15)
[2019-07-22] MEDS ORDERED: ONDANSETRON 4 MG/2 ML (SDV) Z0FRAN IVP PRN (08:15)
--- NOTE | 2019-07-22 08:40 | Diagnostic Imaging Report ---
INDICATION: Left renal stone. COMPARISON: 07/17/2019 TECHNIQUE: 2 radiographs of abdomen dated 07/22/2019. FINDINGS: The visualized lung bases are clear. Surgical clips are present in the right upper quadrant in the abdomen. Nonobstructive bowel gas pattern without dilated loops of bowel. No free air. 5 mm calcification is again identified overlying the superior pole of left kidney, stable from prior examination. On image 2 of 2, there is suggestion of a 3 mm calcification just to the left of the L3 left transverse process. However, this is not seen on image 1 of this series. Additionally, this was not noted on prior imaging. Phlebolith is noted within the right pelvis. No acute osseous abnormality. IMPRESSION: 3 mm calcification to the left of the left L3 transverse process is noted. This may relate to a tiny ureterolith given location. This could also simply relate to enteric contents. Stable left renal calculus. No bowel obstruction or free air. Dictated by: Dictated on workstation # [id number]
[2019-07-22] MEDS ORDERED: TMSL.4C PO (09:36)
[2019-07-22] MEDS ORDERED: TRAM50TA3 PO (09:36)
[2019-07-22] MEDS ORDERED: NITR-65 PO (09:36)
--- NOTE | 2019-07-22 10:58 | Diagnostic Imaging Report ---
INDICATION: Status post ESWL. COMPARISON: Earlier the same day FINDINGS: Single supine radiographic view of the abdomen was obtained. Extraosseous calcification is again noted projecting over the left renal shadow. No other unexpected extraosseous calcifications are seen on this exam. Small bowel loops are nondistended. There is no large collection of free intraperitoneal air. Osseous structures show no acute abnormalities. IMPRESSION: 1. Previously described calcification projecting lateral to the left L3 transverse process is no longer identified. 2. Redemonstration of left-sided renal calculus. Dictated by: Dictated on workstation # [id number]
--- NOTE | 2019-07-22 21:30 | OPERATIVE REPORT ---
DATE OF SERVICE: 07/22/2019 PREOPERATIVE DIAGNOSIS: Left renal stone. POSTOPERATIVE DIAGNOSIS: Left renal stone. OPERATION PERFORMED: Left ESWL. SURGEON: Dakota Mishra MD ANESTHESIA: General. COMPLICATIONS: None. DESCRIPTION OF PROCEDURE: Under satisfactory general anesthesia, the patient in supine position on the ESWL table, the left renal stone was localized. Shocks were delivered at kV of 6, a total of 2500 shocks completely fragmented the stone. The patient received 40 mg of Lasix and 30 mg of Toradol IV at the end of the procedure. She tolerated the procedure and anesthesia well and was sent to recovery room in stable condition. Job ID: [id number] DocumentID: [id number] Dictated Date: 07/22/2019 07:45:07 Cutter Out Date: 07/22/2019 12:41:07 Dictated By: DAKOTA MISHRA MD
== END 2019-07-22 10:30 | disposition home or self-care (01) ==
LOC: SDC 06:07
PROVIDERS: ATTEND Urology
DX: N20.0 Calculus of kidney (principal); E66.9 Obesity, unspecified; Z87.891 Personal history of nicotine dependence; Z68.36 Body mass index [BMI] 36.0-36.9, adult; Z79.899 Other long term (current) drug therapy; Z79.84 Long term (current) use of oral hypoglycemic drugs; Z90.49 Acquired absence of other specified parts of digestive tract; Z88.5 Allergy status to narcotic agent
CPT/HCPCS: 74018; 84703; 87081

== ENCOUNTER → 2019-08-05 | Outpatient (CLI) | payer OTHER ==
[~2019-08-05] MED LIST changes: +TRAM50TA3 PO
--- NOTE | 2019-08-05 16:00 | Diagnostic Imaging Report ---
INDICATION: History of renal calculus. COMPARISON: 07/22/2019. FINDINGS: A single frontal radiographic view if the abdomen was obtained and again demonstrates extraosseous calcification projecting over the left renal shadow. No other unexpected extraosseous calcifications or radiopaque foreign bodies are seen. The small bowel loops are nondistended. There is no large collection of free intraperitoneal air. IMPRESSION: 1. Redemonstration of left renal calculus. 2. Nonobstructed small bowel gas pattern. Dictated by: Dictated on workstation # [id number]
== END ==
LOC: RAD 14:54
PROVIDERS: ATTEND Urology
DX: N20.0 Calculus of kidney (principal)
CPT/HCPCS: 74018

== ENCOUNTER → 2020-10-05 | Outpatient (CLI) | payer OTHER ==
[~2020-10-05] MED LIST changes: -FOLI0.8T PO; +FOLI0.8T4 PO; -OXYC-465 PO; +OXYC-556 PO
--- NOTE | 2020-10-05 13:58 | Diagnostic Imaging Report ---
INDICATION: Nephrolithiasis. EXAMINATION: KUB at 1:46 PM. FINDINGS: The gallbladder is surgically absent. The bowel gas pattern is normal. The kidneys are largely obscured by fecal material in the colon. IMPRESSION: Unremarkable abdomen. Dictated by: Dictated on workstation # [id number]
== END ==
LOC: RAD 13:16
PROVIDERS: ATTEND Urology
DX: N20.0 Calculus of kidney (principal)
CPT/HCPCS: 74018

== ENCOUNTER → 2020-10-26 | Outpatient (CLI) | payer OTHER ==
--- NOTE | 2020-10-26 18:37 | Diagnostic Imaging Report ---
PROCEDURE: CT abdomen and pelvis without contrast. TECHNIQUE: Multiple contiguous axial images were obtained through the abdomen and pelvis without the use of intravenous contrast. Auto Exposure Controls were utilized during the CT exam to meet ALARA standards for radiation dose reduction. INDICATION: Hematuria, flank pain. COMPARISON: Radiographs dated 10/05/2020. FINDINGS: The visualized lung bases are clear. Cholecystectomy. The unenhanced liver and spleen are unremarkable. The adrenal glands are unremarkable. The unenhanced pancreas is unremarkable. A 0.6 cm calcification is noted within the distal right ureter, series 2, image 64 and series 601, image 37. This is resulting in minimal right hydroureteronephrosis. Several additional right-sided renal calculi are present. A few nonobstructing left renal calculi are present. Otherwise, the unenhanced left kidney and left ureter are unremarkable. No aneurysmal dilatation of the abdominal aorta. The urinary bladder is unremarkable. The uterus and adnexal regions are unremarkable for age. The appendix is unremarkable. No bowel obstruction or pneumatosis. No significant adenopathy, free air or free fluid within the abdomen or pelvis. No acute osseous abnormality. IMPRESSION: 1. 0.6 cm calculus within the distal right ureter with resulting minimal right hydroureteronephrosis. 2. Additional bilateral renal calculi, nonobstructing on the left. 3. Additional findings as above. Dictated by: Dictated on workstation # [id number]
== END ==
LOC: RAD 17:15
PROVIDERS: ATTEND Urology
DX: N13.2 Hydronephrosis with renal and ureteral calculous obstruction (principal)
CPT/HCPCS: 74176

== ENCOUNTER → 2020-10-31 | Outpatient (CLI) | payer OTHER ==
[~2020-10-31] MED LIST changes: +AMPH20TA2 PO; +PHEN-640 PO
--- NOTE | 2020-10-31 17:17 | Diagnostic Imaging Report ---
INDICATION: Right ureteral calculus. COMPARISON: 10/05/2020 FINDINGS: Two supine radiographic views of the abdomen were obtained. Small bowel loops are nondistended. There is no large collection of free intraperitoneal air. Small extraosseous calcifications are noted projecting over the bilateral renal shadows. No other unexpected extraosseous calcifications or radiopaque foreign bodies are seen. Osseous structures show no gross acute abnormalities. IMPRESSION: 1. Probable bilateral nephrolithiasis. 2. Nonobstructed small bowel gas pattern. Dictated by: Dictated on workstation # [id number]
== END ==
LOC: RAD 15:36
PROVIDERS: ATTEND Urology
DX: N20.1 Calculus of ureter (principal)
CPT/HCPCS: 74018

== ENCOUNTER 2020-11-01 08:41 | Outpatient (CLI) | payer OTHER ==
[~2020-11-01] VITALS: Ht 170.2 cm; Wt 90.9 kg
[~2020-11-01 08:41] MED LIST changes: -AMPH20TA2 PO; -PHEN-640 PO
[2020-11-01] MEDS ORDERED: AMPH20TA2 PO (10:12)
[2020-11-02] MEDS ORDERED: NITR-65 PO (09:40)
[2020-11-02] MEDS ORDERED: PHEN-640 PO (09:40)
== END 2020-11-01 10:18 ==
LOC: PREOP 08:41
PROVIDERS: ATTEND Urology
DX: Z01.818 Encounter for other preprocedural examination (principal)

== ENCOUNTER 2020-11-02 06:13 | Day surgery (SDC) | payer OTHER ==
[2020-11-02] VITALS (9 sets, daily range): BP systolic 90–119; BP diastolic 53–88
[~2020-11-02] VITALS: Ht 170 cm; Wt 90.9 kg
[~2020-11-02 06:13] MED LIST changes: +AMPH20TA2 PO
[2020-11-02] MEDS ORDERED: cefTRIAXone 1,000 MG in WATER (STERILE) FOR INJECTION 10 ML IV ONE (06:15)
[2020-11-02] MEDS: LACTATED RINGERS 1,000 ML IV PRN ×2 (06:56→08:03)
[2020-11-02] MEDS ORDERED: SEVOFLURANE (ULTANE) 15 ML INHAL SOLN ONE ×2 (07:02→08:19)
[2020-11-02] MEDS ORDERED: LIDOCAINE PF 2% 5 ML (XYLOCAINE) VIAL ONE (07:02)
[2020-11-02] MEDS ORDERED: MIDAZOLAM 2 MG/2 ML (VERSED) VIAL ONE (07:02)
[2020-11-02] MEDS ORDERED: proPOfol 200 MG/20 ML (DIPRIVAN) VIAL IV ONE (07:02)
[2020-11-02] MEDS ORDERED: fentaNYL INJ 100 MCG/2 ML AMP ONE (07:02)
[2020-11-02] MEDS ORDERED: ONDANSETRON 4 MG/2 ML (SDV) Z0FRAN ONE (07:02)
[2020-11-02] MEDS ORDERED: ROCURONIUM 10 MG/ML 5 ML SYRINGE IV ONE ×2 (07:02→08:18)
--- NOTE | 2020-11-02 07:07 | Diagnostic Imaging Report ---
Indication: Right ureteral stone Supine views of the abdomen shows fecal material scattered throughout a nondilated colon. The right kidney is predominantly obscured by the fecal material. There is a small calcification projected over the mid left kidney. No ureteral stones are evident on these views. There is no acute bony abnormality. Findings are similar to the 10/31/2020 study. IMPRESSION: Stable abdomen. Dictated by: Dictated on workstation # [id number]
--- NOTE | 2020-11-02 08:03 | Progress Note-Pre Operative ---
Pre-Operative Progress Note H&P Reviewed The H&P was reviewed, patient examined and no changes noted. Date Seen by Provider: Nov 02, 2020 Time Seen by Provider: 08:02 Date H&P Reviewed: Nov 02, 2020 Time H&P Reviewed: 08:03 Pre-Operative Diagnosis: RT DISTAL URETERAL STONE JENNIFER MISHRA MD Nov 02, 2020 08:03
[2020-11-02] MEDS ORDERED: FUROSEMIDE 40 MG/4 ML INJ (LASIX) ONE (08:19)
[2020-11-02] MEDS ORDERED: KETOROLAC 30 MG/ML VIAL ONE (08:19)
--- NOTE | 2020-11-02 08:52 | Progress Note-Post Operative ---
Post-Operative Progess Note Surgeon (s)/Framing Machine Tender (s) Surgeon JENNIFER MISHRA MD Framing Machine Tender: NONE Pre-Operative Diagnosis RT DISTAL URETERAL STONE Post-Operative Diagnosis SAME Procedure & Operative Findings Date of Procedure 11/02/20 Procedure Performed/Findings RT URETEROSCOPY WITH STONE LITHOTRIPSY Anesthesia Type GENERAL Estimated Blood Loss Estimated blood loss (mL): NONE Specimens/Packing Specimens Removed NONE Packing: NONE JENNIFER MISHRA MD Nov 02, 2020 08:52
--- NOTE | 2020-11-02 08:53 | Discharge Inst-Urology ---
Discharge Inst-Urology Reconcile Patient Problems Problems Reviewed?: Yes Final Diagnosis RT DISTAL URETERAL STONE Patient Instructions/Follow Up Plan/Assessment/Instructions Please make appointment to been seen in office in 2 weeks. Increase oral fluids for 48 hours and then as needed. Diet and Activity as tolerated. If questions or concerns contact your physician Or seek help at emergency department. JENNIFER MISHRA MD Nov 02, 2020 08:53
[2020-11-02] MEDS ORDERED: ONDANSETRON 4 MG/2 ML (SDV) Z0FRAN IVP PRN (09:00)
[2020-11-02] MEDS ORDERED: morphine INJ 10 MG/ML 1ML (SYR OR VIAL) IVP ONE (09:00)
[2020-11-02] MEDS ORDERED: MEPERIDINE (DEMEROL) INJ 50 MG/ML IVP ONE (09:00)
[2020-11-02] MEDS ORDERED: fentaNYL INJ 100 MCG/2 ML AMP IVP ONE (09:00)
--- NOTE | 2020-11-02 09:24 | Diagnostic Imaging Report ---
INDICATION: Fluoroscopy for ureteroscopy and lithotripsy. FINDINGS: Fluoroscopy was provided in the OR during right ureteroscopy and lithotripsy. 8 seconds of fluoroscopic time was utilized. No images were obtained. IMPRESSION: Fluoroscopy, as described. Dictated by: Dictated on workstation # [id number]
[2020-11-02] MEDS ORDERED: NITR-65 PO (09:40)
[2020-11-02] MEDS ORDERED: PHEN-640 PO (09:40)
--- NOTE | 2020-11-02 10:25 | Anesthesia-General Post-Op ---
General Patient Condition Mental Status/LOC: Same as Preop Cardiovascular: Satisfactory Nausea/Vomiting: Absent Respiratory: Satisfactory Pain: Controlled Complications: Absent Post Op Complications Complications None Follow Up Care/Instructions Patient Instructions None needed. Anesthesia/Patient Condition Patient Condition Patient is doing well, no complaints, stable vital signs, no apparent adverse anesthesia problems. No complications reported per nursing. DEX PATRICIA CRNA Nov 02, 2020 10:25
--- NOTE | 2020-11-02 11:51 | OPERATIVE REPORT ---
DATE OF SERVICE: 11/02/2020 PREOPERATIVE DIAGNOSIS: Right distal ureteral stone. POSTOPERATIVE DIAGNOSIS: Right distal ureteral stone. OPERATION PERFORMED: Right ureteroscopy with stone lithotripsy. SURGEON: Dakota Mishra MD ANESTHESIA: General. COMPLICATIONS: None. DESCRIPTION OF PROCEDURE: Under satisfactory general anesthesia, the patient in lithotomy position, genitalia were prepped and draped in the usual sterile fashion. Cystoscope was introduced under vision and the stone was seen protruding through the right ureteral orifice as seen by KUB. I removed the cystoscope, inserted the ureteroscope and using the lithoclast, I was able to completely fragment it and disimpact the stone. There was no further stone up proximally and none distally documented by the ureteroscope. Lots of fragments fell into the bladder. I removed the ureteroscope, reinserted the cystoscope, emptied the bladder. The patient received 40 mg of Lasix and 30 mg of Toradol IV at the end of the procedure. She tolerated the procedure and anesthesia well and was sent to recovery room in stable condition. PLAN: See her back in two weeks and work her up for stone formation. Job ID: [id number] DocumentID: [id number] Dictated Date: 11/02/2020 09:05:13 Caser Up Date: 11/02/2020 11:50:47 Dictated By: DAKOTA MISHRA MD
== END 2020-11-02 10:40 | disposition home or self-care (01) ==
LOC: SDC 06:13
PROVIDERS: ATTEND Urology
DX: N13.2 Hydronephrosis with renal and ureteral calculous obstruction (principal); Z79.899 Other long term (current) drug therapy
CPT/HCPCS: 74018; 76000; 84703; 87081

== ENCOUNTER 2022-07-16 02:35 | Emergency (ER) | payer BC ==
[~2022-07-16] VITALS: Ht 170.2 cm; Wt 93.0 kg
[~2022-07-16 02:35] MED LIST changes: -DULO60CA6 PO; +DULO60CA7 PO; +PHEN-640 PO
[2022-07-16 03:13] LABS: BILIRUBIN,URINE NEGATIVE (NEGATIVE); CLARITY,URINE CLEAR; COLOR,URINE YELLOW; GLUCOSE, URINE (UA) TRACE (NEGATIVE); KETONES,URINE NEGATIVE (NEGATIVE); LEUKOCYTE ESTERASE ,URINE NEGATIVE (NEGATIVE); NITRITE,URINE NEGATIVE (NEGATIVE); PROTEIN,URINE NEGATIVE (NEGATIVE)
[2022-07-16] MEDS ORDERED: KETOROLAC 30 MG/ML VIAL IVP ONE (03:15)
[2022-07-16] MEDS ORDERED: LACTATED RINGERS 1,000 ML IV ONE (03:15)
[2022-07-16 03:31] LABS: BACTERIA,URINE NEGATIVE /HPF; RBC,URINE 25-50 /HPF
[2022-07-16 03:49] LABS: BASOPHILS % (AUTO) 0 % (0-10); EOSINOPHILS # (AUTO) 0.1 10^3/uL (0.0-0.3); EOSINOPHILS % (AUTO) 1 % (0-10); HEMATOCRIT 46 % (35-52); HEMOGLOBIN 15.6 g/dL (11.5-16.0); LYMPHOCYTES # (AUTO) 1.5 10^3/uL (1.0-4.0); LYMPHOCYTES % (AUTO) 17 % (12-44); MEAN CORPUSCULAR HEMOGLOBIN 30 pg (25-34); MEAN CORPUSCULAR HGB CONC 34 g/dL (32-36); MEAN CORPUSCULAR VOLUME 89 fL (80-99); MEAN PLATELET VOLUME 9.4 fL (9.0-12.2); MONOCYTES # (AUTO) 0.4 10^3/uL (0.0-1.0); MONOCYTES % (AUTO) 5 % (0-12); NEUTROPHILS % (AUTO) 77 % (42-75); PLATELET COUNT 286 10^3/uL (130-400); WHITE BLOOD COUNT 9.1 10^3/uL (4.3-11.0)
[2022-07-16 03:52] LABS: ALBUMIN 4.4 GM/DL (3.2-4.5); POTASSIUM 3.3 MMOL/L (3.6-5.0)
[2022-07-16 03:53] LABS: CALCIUM 9.4 MG/DL (8.5-10.1)
[2022-07-16 03:55] LABS: TOTAL PROTEIN 8.2 GM/DL (6.4-8.2)
[2022-07-16 03:56] LABS: BILIRUBIN,TOTAL 0.4 MG/DL (0.1-1.0)
[2022-07-16 03:58] LABS: CREATININE SERUM 1.02 MG/DL (0.60-1.30)
--- NOTE | 2022-07-16 04:09 | ED Abdominal Pain ---
General Chief Complaint: - Reproductive Stated Complaint: KIDNEY STONE LEFT SIDE Nursing Triage Note: PT A&OX3; PT AMBULATES TO ROOM WITHOUT ASSISTANCE OF ER STAFF; PT REPORTS THAT STARTING LAST NIGHT AT APPROX 1900 SHE BEGAN HAVING PAIN IN HER L FLANK THAT RADIATES INTO L GROIN; PT REPORTS THAT SHE HAS AN EXTENSIVE HISTORY OF KIDNEY STONES AND THAT THIS FEELS SIMILAR Source of Information: Patient Exam Limitations: No Limitations History of Present Illness Date Seen by Provider: July 16, 2022 Time Seen by Provider: 03:03 Initial Comments This 37-year-old young lady presents to the emergency room with complaints of pain in the left lower abdomen, groin region, and left back that started around 1900 yesterday. Pain was of fairly sudden onset and has been colicky in nature. She denies any urinary changes. She was working outside and has been drinking water well. She took ibuprofen 800 mg at about 1945 without much improvement. She also took an old oxycodone tablet which was also not very helpful. She reports her pain at present is 7/10. She denies . She has had bilateral salpingectomy. She denies associated symptoms such as nausea or vomiting. She has had kidney stones in the past requiring intervention and states this pain is reminiscent of prior kidney stones. She is afebrile. Patient had seen Dr. Fonseca in the past for urology and has not established with another urologist since his snf. Her primary care provider was Stefania Diez and she has not established with another PCP yet. Allergies and Home Medications Allergies Coded Allergies: adhesive tape (Verified Allergy, Unknown, 07/16/22) Patient Home Medication List Home Medication List Reviewed: Yes Cephalexin (Cephalexin) 500 Mg Tablet, 500 MG PO TID Prescribed by: RENATO RAMOS on 07/16/22 0427 Dextroamphetamine/Amphetamine (Adderall 20 mg Tablet) 20 Mg Tablet, 20 MG PO DAILY, (Reported) Entered as Reported by: TORITO CORNEJO on 11/01/20 1012 Nitrofurantoin Monohyd/M-Cryst (Macrobid 100 mg Capsule) 100 Mg Capsule, 1 TAB PO BID WITH MEALS Prescribed by: DESTINY VELA on 11/02/20 0940 Ondansetron (Ondansetron Odt) 4 Mg Tab.rapdis, 4 MG SL Q4H PRN for NAUSEA/VOMITING Prescribed by: RENATO RAMOS on 07/16/22 0427 Oxycodone HCl/Acetaminophen (Percocet 5-325 mg Tablet) 1 Each Tablet, 1-2 TAB PO Q4H PRN for PAIN BREAKTROUGH Prescribed by: RENATO RAMOS on 07/16/22 0428 Phenazopyridine HCl (Pyridium) 200 Mg Tablet, 1 TAB PO TID Prescribed by: DESTINY VELA on 11/02/20 0940 Potassium Citrate (Urocit-K) 15 Meq Tablet.er, 15 MEQ PO BID, (Reported) Entered as Reported by: LEEANNA CHIU on 11/04/18 1131 Review of Systems Review of Systems Constitutional: no symptoms reported EENTM: No Symptoms Reported Respiratory: No Symptoms Reported Cardiovascular: No Symptoms Reported Gastrointestinal: See HPI Genitourinary: No Symptoms Reported Musculoskeletal: no symptoms reported Skin: no symptoms reported Psychiatric/Neurological: No Symptoms Reported Endocrine: No Symptoms Reported Hematologic/Lymphatic: No Symptoms Reported Past Qevxqaz-Wqagyg-Vsjtil Hx Patient Social History Tobacco Use?: No Use of E-Cig and/or Vaping dev: Yes E-Cig or Vaping type used: Nicotine Substance use?: Yes Substance type: Marijuana Substance frequency: Several times a month Alcohol Use?: No Pt feels they are or have been: No Immunizations Up To Date PED Vaccines UTD: Yes Influenza Vaccine Up-to-Date: No; Not Current First/Initial COVID19 Vaccinat: 2020 Second COVID19 Vaccination Yefri: 2020 Third COVID19 Vaccination Date: yes COVID19 Vaccine [employer]: [employer] Seasonal Allergies Seasonal Allergies: Yes Past Medical History Surgeries: Yes (kidney stone removal X4, wisdom teeth, CS X2, D&C, uterine ablation) Abdominal (DNC, uterine ablation), Section, Gallbladder, Renal (Stone removal), Tubal Ligation Respiratory: No Currently Using CPAP: No Currently Using BIPAP: No Cardiac: No Neurological: No Reproductive Disorders: No Female Reproductive Disorders: Polycystic Ovarian Dis Sexually Transmitted Disease: No HIV/AIDS: No Genitourinary: Yes Kidney Stones Gastrointestinal: Yes Irritable Bowel Musculoskeletal: No Endocrine: No HEENT: Yes (GLASSES/CONTACTS) Loss of Vision: Denies Hearing Impairment: Denies Cancer: No Psychosocial: Yes ADD/ADHD, Depression Integumentary: Yes Eczema Blood Disorders: No Adverse Reaction/Blood Tranf: No (N/A) Family Medical History Arthritis G8 BROTHER FHx: polycystic ovary G8 SISTER G8 SISTER Hypertension 19 MOTHER Neoplasm 19 MOTHER (UTERINE CANCER ) Physical Exam Vital Signs Vital Signs - First Documented 07/16/22 02:45 Temp 36.6 Pulse 91 Resp 16 B/P (MAP) 157/99 (118) Pulse Ox 100 Capillary Refill : Height/Weight/BMI Height: 5'6.00" Weight: 219lbs. 0.0oz. 99.351419dp; 32.00 BMI Method:Actual General Appearance: WD/WN, no apparent distress HEENT: normal ENT inspection Respiratory: lungs clear, normal breath sounds, no respiratory distress Cardiovascular: regular rate, rhythm, no edema, no murmur Gastrointestinal: normal bowel sounds, soft; No distended; tenderness (Mild in the left mid abdomen) Extremities: normal inspection, no pedal edema Neurologic/Psychiatric: alert, normal mood/affect, oriented x 3 Skin: normal color, warm/dry Progress/Results/Core Measures Results/Orders Lab Results Laboratory Tests Test 07/16/22 02:53 07/16/22 02:55 Range/Units Urine Color YELLOW Urine Clarity CLEAR Urine pH 6.0 5-9 Urine Specific Maxwell >=1.030 1.016-1.022 Urine Protein NEGATIVE NEGATIVE Urine Glucose (UA) TRACE H NEGATIVE Urine Ketones NEGATIVE NEGATIVE Urine Nitrite NEGATIVE NEGATIVE Urine Bilirubin NEGATIVE NEGATIVE Urine Urobilinogen 0.2 < = 1.0 MG/DL Urine Leukocyte Esterase NEGATIVE NEGATIVE Urine RBC (Auto) 2+ H NEGATIVE Urine RBC 25-50 H /HPF Urine WBC NONE /HPF Urine Crystals NONE /LPF Urine Bacteria NEGATIVE /HPF Urine Casts NONE /LPF Urine Mucus SMALL H /LPF Urine Culture Indicated NO White Blood Count 9.1 4.3-11.0 10^3/uL Red Blood Count 5.16 H 3.80-5.11 10^6/uL Hemoglobin 15.6 11.5-16.0 g/dL Hematocrit 46 35-52 % Mean Corpuscular Volume 89 80-99 fL Mean Corpuscular Hemoglobin 30 25-34 pg Mean Corpuscular Hemoglobin Concent 34 32-36 g/dL Red Cell Distribution Width 12.0 10.0-14.5 % Platelet Count 286 130-400 10^3/uL Mean Platelet Volume 9.4 9.0-12.2 fL Immature Granulocyte % (Auto) 0 % Neutrophils (%) (Auto) 77 H 42-75 % Lymphocytes (%) (Auto) 17 12-44 % Monocytes (%) (Auto) 5 0-12 % Eosinophils (%) (Auto) 1 0-10 % Basophils (%) (Auto) 0 0-10 % Neutrophils # (Auto) 7.0 1.8-7.8 10^3/uL Lymphocytes # (Auto) 1.5 1.0-4.0 10^3/uL Monocytes # (Auto) 0.4 0.0-1.0 10^3/uL Eosinophils # (Auto) 0.1 0.0-0.3 10^3/uL Basophils # (Auto) 0.0 0.0-0.1 10^3/uL Immature Granulocyte # (Auto) 0.0 0.0-0.1 10^3/uL Sodium Level 140 135-145 MMOL/L Potassium Level 3.3 L 3.6-5.0 MMOL/L Chloride Level 103 98-107 MMOL/L Carbon Dioxide Level 26 21-32 MMOL/L Anion Gap 11 5-14 MMOL/L Blood Urea Nitrogen 10 7-18 MG/DL Creatinine 1.02 0.60-1.30 MG/DL Estimat Glomerular Filtration Rate 74 BUN/Creatinine Ratio 10 Glucose Level 108 H 70-105 MG/DL Calcium Level 9.4 8.5-10.1 MG/DL Corrected Calcium 9.1 8.5-10.1 MG/DL Total Bilirubin 0.4 0.1-1.0 MG/DL Aspartate Amino Transf (AST/SGOT) 26 5-34 U/L Alanine Aminotransferase (ALT/SGPT) 22 0-55 U/L Alkaline Phosphatase 101 40-136 U/L Total Protein 8.2 6.4-8.2 GM/DL Albumin 4.4 3.2-4.5 GM/DL Serum Test, Qualitative NEGATIVE NEGATIVE My Orders Orders - RENATO REBOLLAR MD Ua Culture If Indicated (07/16/22 03:03) Ketorolac Injection (Toradol Injection) (07/16/22 03:15) Ed Iv/Invasive Line Start (07/16/22 03:12) Lactated Ringers (Lr 1000 Ml Iv Solution (07/16/22 03:15) Cbc With Automated Diff (07/16/22 03:16) Comprehensive Metabolic Panel (07/16/22 03:16) Hcg,Qualitative Serum (07/16/22 03:16) Abdomen/Kub 1view (07/16/22 04:09) Medications Given in ED Current Medications Medications Dose Ordered Sig/Edith Route Start Time Stop Time Status Last Admin Dose Admin Ketorolac Tromethamine 30 mg ONCE ONCE IVP 07/16/22 03:15 07/16/22 03:16 DC 07/16/22 03:31 30 MG Lactated Ringer's 1,000 ml @ 0 mls/hr Q0M ONCE IV 07/16/22 03:15 07/16/22 03:16 DC 07/16/22 03:31 1,000 MLS/HR Vital Signs/I&O 07/16/22 02:45 Temp 36.6 Pulse 91 Resp 16 B/P (MAP) 157/99 (118) Pulse Ox 100 Blood Pressure Mean: 118 Progress Progress Note #1: Time: 04:16 Progress Note Patient was interviewed and examined. She was treated with Toradol and IV hydration. This improved her pain down to 3/10. Hematuria was noted on urinalysis. Labs were otherwise unremarkable as interpreted by me including CBC, CMP, urinalysis, and serum test. I discussed options with the patient including imaging with CT scan versus more conservative watchful waiting with a plain abdominal x-ray performed in the ER. Patient selects the latter. Progress Note #2: Time: 04:35 Progress Note KUB x-rays were reviewed by me and revealed some density in the left pelvis which could relate to ureteral stone. Patient also has had pelvic surgeries in the past and there could be some radiopaque material remaining from those surgeries. Patient was advised to strain urine and treat with medications as described in discharge instructions. She was discharged in improved condition. Diagnostic Imaging Diagonstic Imaging: Xray Plain Films/CT/US/NM/MRI: abdomen, pelvis Comments There were some densities noted in the left lower abdomen on x-ray. It is unclear if these densities could be member service representative of ureteral stone. Patient has had some pelvic surgery in the past so she may have radiopaque material in the pelvis from surgery. X-ray was interpreted by me and radiologist's report was not yet available. Departure Impression Primary Impression: Left sided abdominal pain Additional Impression: Hematuria Qualified Codes: R31.9 - Hematuria, unspecified Disposition: 01 HOME, SELF-CARE Condition: Improved Departure-Patient Inst. Decision time for Depature: 04:17 Referrals: NO,LOCAL PHYSICIAN (PCP) Primary Care Physician STEFANIA DIEZ APRN (Family) Primary Care Physician Patient Instructions: Abdominal Pain, Adult ED, Blood in Urine (Hematuria), Adult ED, Kidney Stone, Adult ED Add. Discharge Instructions: There were some calcified spots in your left pelvis on the x-ray which could correlate with kidney stone. If further investigation for definitive diagnosis is desired, a CT scan would need to be performed. Drink plenty of clear liquids to stay well-hydrated. For pain you may continue taking your ibuprofen 800 mg 3 times daily. Add oxycodone as prescribed for pain not controlled by ibuprofen. Complete your antibiotics as prescribed to prevent infection. Use the Zofran as prescribed for nausea or vomiting. Follow-up with a primary care provider or urologist as soon as possible. Strain your urine and bring any stones collected to your follow-up appointment. Return to care if you have worsening symptoms despite following these instructions. All discharge instructions reviewed with patient and/or family. Voiced understanding. Scripts Cephalexin (Cephalexin) 500 Mg Tablet 500 MG PO TID, #20 TAB Prov: RENATO REBOLLAR MD 07/16/22 Oxycodone HCl/Acetaminophen (Percocet 5-325 mg Tablet) 1 Each Tablet 1-2 TAB PO Q4H PRN for PAIN BREAKTROUGH MDD 6 TABS, #10 TAB Prov: RENATO REBOLLAR MD 07/16/22 Ondansetron (Ondansetron Odt) 4 Mg Tab.rapdis 4 MG SL Q4H PRN for NAUSEA/VOMITING, #10 TAB Prov: RENATO REBOLLAR MD 07/16/22 Copy Copies To 1: [facility]/RENATO COOPER MD July 16, 2022 04:09
[2022-07-16] MEDS ORDERED: OXYC1TAB87 PO (04:27)
[2022-07-16] MEDS ORDERED: ONDA4TAB11 SL (04:27)
[2022-07-16] MEDS ORDERED: CEPH500T PO (04:27)
[2022-07-16 04:40] VITALS: BP 129/85
--- NOTE | 2022-07-16 06:15 | Diagnostic Imaging Report ---
INDICATION: Abdominal pain. Comparison is made with prior examination 11/02/2020 FINDINGS: Bowel gas pattern is nonspecific. There are surgical clips in right upper quadrant. There are no abnormal dominant calcifications. The osseous structures are unremarkable. IMPRESSION: Nonspecific bowel gas pattern. Dictated by: Dictated on workstation # [id number]
== END 2022-07-16 04:40 | disposition home or self-care (01) ==
LOC: EDUNIT# 02:35 → ER 02:41
DX: R10.32 Left lower quadrant pain (principal); R31.9 Hematuria, unspecified; F17.290 Nicotine dependence, other tobacco product, uncomplicated; Z87.442 Personal history of urinary calculi
CPT/HCPCS: 36415; 74018; 80053; 81000; 84703; 85025

== ENCOUNTER 2022-10-20 02:50 | Emergency (ER) | payer BC ==
[~2022-10-20 02:50] MED LIST changes: +CEPH500T PO; +ONDA4TAB11 SL
[2022-10-20] MEDS ORDERED: NS IV 1000 ML 1,000 ML IV STA (03:47)
--- NOTE | 2022-10-20 03:52 | ED Abdominal Pain ---
General Chief Complaint: Abdominal/GI Problems Stated Complaint: LEFT SIDED FLANK PX,KIDNEY STONES Nursing Triage Note: TO ED VIA POV AND AMBULATORY TO ROOM 7 WITH C/O LEFT FLANK PAIN SINCE Saturday10/14/22. PT STATES SHE WENT TO [facility] 10/[address]AN AND WAS TOLD SHE HAD 6MM KIDNEY STONE AND IS WAITING FOR CALL BACK FROM UROLOGY. TOOK HYDROCODONE AT 2300. Source of Information: Patient Exam Limitations: No Limitations History of Present Illness Date Seen by Provider: Oct 20, 2022 Time Seen by Provider: 03:40 Initial Comments Patient is a 37-year-old female with a long history of kidney stones who presents to the emergency department with a chief complaint of left flank pain. Patient states that she has had pain for about a week, went to [facility] on Saturday of this last week 10/16 and was diagnosed with a "5 or 6 mm left ureteral stone". She has been taking hydrocodone without any relief of symptoms. She is also on Flomax and ondansetron. She denies fevers or chills. No dysuria, urgency or frequency. She has had "5 surgeries" for kidney stones in the past all of them here. She is currently waiting on a call back from urology for definitive treatment. She has also had uterine ablation and bilateral salpingectomy, cholecystectomy. Timing/Duration: 1 Week, Getting Worse Severity/Quality: Severe Location: Flank (left flank) Activities at Onset: None Associated Symptoms: Nausea/Vomiting Allergies and Home Medications Allergies Coded Allergies: adhesive tape (Verified Allergy, Unknown, 07/16/22) Patient Home Medication List Home Medication List Reviewed: Yes Cephalexin (Cephalexin) 500 Mg Tablet, 500 MG PO TID Prescribed by: RENATO RAMOS on 07/16/22 0427 Dextroamphetamine/Amphetamine (Adderall 20 mg Tablet) 20 Mg Tablet, 20 MG PO DAILY, (Reported) Entered as Reported by: TORITO CORNEJO on 11/01/20 1012 Nitrofurantoin Monohyd/M-Cryst (Macrobid 100 mg Capsule) 100 Mg Capsule, 1 TAB PO BID WITH MEALS Prescribed by: DESTINY VELA on 11/02/20 0940 Ondansetron (Ondansetron Odt) 4 Mg Tab.rapdis, 4 MG SL Q4H PRN for NAUSEA/VOMITING Prescribed by: RENATO RAMOS on 07/16/22 0427 Oxycodone HCl/Acetaminophen (Percocet 5-325 mg Tablet) 1 Each Tablet, 1-2 TAB PO Q4H PRN for PAIN BREAKTROUGH Prescribed by: RENATO RAMOS on 07/16/22 0428 Phenazopyridine HCl (Pyridium) 200 Mg Tablet, 1 TAB PO TID Prescribed by: DESTINY VELA on 11/02/20 0940 Potassium Citrate (Urocit-K) 15 Meq Tablet.er, 15 MEQ PO BID, (Reported) Entered as Reported by: LEEANNA CHIU on 11/04/18 1131 Review of Systems Review of Systems Constitutional: see HPI Respiratory: No Symptoms Reported Cardiovascular: No Symptoms Reported Gastrointestinal: Abdominal Pain, Nausea Genitourinary: No Symptoms Reported Musculoskeletal: back pain Skin: no symptoms reported Past [id number]-[id number]-Byzmkj Hx Patient Social History Tobacco Use?: Yes Use of E-Cig and/or Vaping dev: Yes E-Cig or Vaping type used: Nicotine Substance use?: Yes Substance type: Marijuana Alcohol Use?: No Immunizations Up To Date PED Vaccines UTD: Yes First/Initial COVID19 Vaccinat: 2020 Second COVID19 Vaccination Yefri: 2020 Third COVID19 Vaccination Date: 2020 Seasonal Allergies Seasonal Allergies: Yes Past Medical History Surgeries: Yes (kidney stone removal X4, wisdom teeth, CS X2, D&C, uterine ablation) Abdominal, Section, Gallbladder, Renal, Tubal Ligation Respiratory: No Currently Using CPAP: No Currently Using BIPAP: No Cardiac: No Neurological: No Reproductive Disorders: No Female Reproductive Disorders: Polycystic Ovarian Dis Sexually Transmitted Disease: No HIV/AIDS: No Genitourinary: Yes Kidney Stones Gastrointestinal: Yes Irritable Bowel Musculoskeletal: No Endocrine: No HEENT: Yes (GLASSES/CONTACTS) Loss of Vision: Denies Hearing Impairment: Denies Cancer: No Psychosocial: Yes ADD/ADHD, Depression Integumentary: Yes Eczema Blood Disorders: No Adverse Reaction/Blood Tranf: No (N/A) Family Medical History Arthritis G8 BROTHER FHx: polycystic ovary G8 SISTER G8 SISTER Hypertension 19 MOTHER Neoplasm 19 MOTHER (UTERINE CANCER ) Physical Exam Vital Signs Vital Signs - First Documented 10/20/22 03:32 Temp 36.5 Pulse 83 Resp 18 B/P (MAP) 155/108 (124) Pulse Ox 100 O2 Delivery Room Air Capillary Refill : Less Than 3 Seconds Height/Weight/BMI Height: 5'6.00" Weight: 219lbs. 0.0oz. 99.345378nw; 32.00 BMI Method:Actual General Appearance: WD/WN, moderate distress HEENT: PERRL/EOMI Neck: full range of motion Respiratory: lungs clear, normal breath sounds, no respiratory distress, no accessory muscle use Cardiovascular: regular rate, rhythm Peripheral Pulses: 2+ Radial Pulses (R), 2+ Radial Pulses (L) Gastrointestinal: normal bowel sounds, soft Extremities: normal range of motion, non-tender, normal inspection Back: CVA tenderness (L) Neurologic/Psychiatric: alert, oriented x 3, other (tearful/hurting) Skin: normal color, warm/dry Progress/Results/Core Measures Results/Orders Lab Results Laboratory Tests Test 10/20/22 03:44 10/20/22 04:00 Range/Units Urine Color YELLOW Urine Clarity CLEAR Urine pH 7.0 5-9 Urine Specific [place] 1.020 1.016-1.022 Urine Protein NEGATIVE NEGATIVE Urine Glucose (UA) NEGATIVE NEGATIVE Urine Ketones TRACE H NEGATIVE Urine Nitrite NEGATIVE NEGATIVE Urine Bilirubin NEGATIVE NEGATIVE Urine Urobilinogen 1.0 < = 1.0 MG/DL Urine Leukocyte Esterase NEGATIVE NEGATIVE Urine RBC (Auto) 2+ H NEGATIVE Urine RBC RARE /HPF Urine WBC 5-10 H /HPF Urine Squamous Epithelial Cells 0-2 /HPF Urine Crystals NONE /LPF Urine Amorphous Sediment MOD SHARYN URATES H /LPF Urine Bacteria MODERATE H /HPF Urine Casts NONE /LPF Urine Mucus NEGATIVE /LPF Urine Culture Indicated YES Sodium Level 138 135-145 MMOL/L Potassium Level 3.5 L 3.6-5.0 MMOL/L Chloride Level 102 98-107 MMOL/L Carbon Dioxide Level 25 21-32 MMOL/L Anion Gap 11 5-14 MMOL/L Blood Urea Nitrogen 14 7-18 MG/DL Creatinine 1.22 0.60-1.30 MG/DL Estimat Glomerular Filtration Rate 59 BUN/Creatinine Ratio 11 Glucose Level 149 H 70-105 MG/DL Calcium Level 9.3 8.5-10.1 MG/DL My Orders Orders - MULU MUNSON MD Ed Iv/Invasive Line Start (10/20/22 03:47) Basic Metabolic Panel (10/20/22 03:47) Ua Culture If Indicated (10/20/22 03:47) Ns Iv 1000 Ml (Sodium Chloride 0.9%) (10/20/22 03:47) Glycopyrrolate Injection (Glycopyrrolate (10/20/22 04:00) Ketorolac Injection (Ketorolac Injection (10/20/22 04:00) Morphine Injection (Morphine Injection (10/20/22 04:00) Ondansetron Injection (Zofran Injectio (10/20/22 04:00) Urine Culture (10/20/22 03:44) Medications Given in ED Current Medications Medications Dose Ordered Sig/Edith Route Start Time Stop Time Status Last Admin Dose Admin Glycopyrrolate 0.2 mg ONCE ONCE IV 10/20/22 04:00 10/20/22 04:01 DC 10/20/22 04:01 0.2 MG Ketorolac Tromethamine 15 mg ONCE ONCE IVP 10/20/22 04:00 10/20/22 04:01 DC 10/20/22 04:01 15 MG Morphine Sulfate 4 mg ONCE ONCE IVP 10/20/22 04:00 10/20/22 04:01 DC 10/20/22 04:01 4 MG Ondansetron HCl 4 mg ONCE ONCE IVP 10/20/22 04:00 10/20/22 04:01 DC 10/20/22 04:02 4 MG Vital Signs/I&O 10/20/22 10/20/22 10/20/22 03:32 04:01 04:01 Temp 36.5 36.5 36.5 Pulse 83 Resp 18 B/P (MAP) 155/108 (124) Pulse Ox 100 O2 Delivery Room Air Blood Pressure Mean: 124 Progress Progress Note : Time: 04:30 Progress Note Patient re-evaluated and pain is improved. Down to a "6". She has some bacteria in her urine - will add antibiotics to her medications. Patient seen and evaluated by me. Evaluation includes physical exam, BMP and UA. Pertinent physical exam findings - WDWN female left CVA tenderness and left flank tenderness. Normal bowel sounds. Abdomen is soft. DDx based on H&P - renal colic, UTI Labs independently reviewed and interpreted by me. Her UA shows sg 1.020, trace ketones, 2+ RBC with 5-10 WBC, moderate bacteria. BMP is remarkable only for a slightly increased glucose at 149. Treated with Robinul 0.2mg IV, Toradol 15mg IV, Morphine 2 doses of 4mg and zofran 4mg and IVF (NS). SHe had improvement in her symptoms. WE discussed antibiotics as stated above. Also home with PO TOradol with strict precautions to hydrate well. Return precautions provided in both verbal and written format. Patient is comfortable with d/c to home. Departure Impression Primary Impression: Renal colic on left side Additional Impression: UTI (urinary tract infection) Qualified Codes: N30.01 - Acute cystitis with hematuria Disposition: HOME, SELF-CARE Condition: Improved Departure-Patient Inst. Decision time for Depature: 04:35 Referrals: NINO,LOCAL PHYSICIAN (PCP) Primary Care Physician VAL BUCKNER APRN (Family) Primary Care Physician Patient Instructions: Renal Colic (DC) Add. Discharge Instructions: Drink lots of fluids to stay well hydrated. Use the Toradol 10mg tablets as needed every 8 hours for pain. Take this medication with food. Continue the Flomax and zofran as prescribed. Oxycodone 5mg tablets; 1 - 2 tablets every 6 hours as needed for pain. Take stool softeners daily while on narcotic pain medications. Antibiotics - Macrobid - 1 pill twice a day for 10 days. Call the Urologists office Saturday morning. If you develop a fever or have pain uncontrolled with medications - please return to the Emergency Department for re-evaluation. Scripts Nitrofurantoin Monohyd/M-Cryst (Macrobid 100 mg Capsule) 100 Mg Capsule 1 TAB PO BID for 10 Days, #20 CAP Prov: MULU MUNSON MD 10/20/22 Oxycodone HCl/Acetaminophen (Percocet 5-325 mg Tablet) 5 Mg-325 Mg Tablet 1 TAB PO Q6H PRN for PAIN-MODERATE MDD 6, #15 TAB Prov: MULU MUNSON MD 10/20/22 Ketorolac Tromethamine (Ketorolac Tromethamine) 10 Mg Tablet 10 MG PO Q8H PRN for PAIN-MODERATE (5-7), #9 TAB Prov: MULU MUNSON MD 10/20/22 MULU MUNSON MD Oct 20, 2022 03:52
[2022-10-20] MEDS ORDERED: morphine INJ 4 MG/ML 1 ML (VIAL/SYRINGE) IVP ONE ×2 (04:00→04:30)
[2022-10-20] MEDS ORDERED: ONDANSETRON 4 MG/2 ML (SDV) Z0FRAN IVP ONE (04:00)
[2022-10-20] MEDS ORDERED: KETOROLAC INJ 15 MG/ML VIAL IVP ONE (04:00)
[2022-10-20] MEDS ORDERED: GLYCOPYRROLATE INJ 0.2 MG/ML 2 ML VIAL IV ONE (04:00)
[2022-10-20 04:09] LABS: BILIRUBIN,URINE NEGATIVE (NEGATIVE); CLARITY,URINE CLEAR; COLOR,URINE YELLOW; GLUCOSE, URINE (UA) NEGATIVE (NEGATIVE); KETONES,URINE TRACE (NEGATIVE); LEUKOCYTE ESTERASE ,URINE NEGATIVE (NEGATIVE); NITRITE,URINE NEGATIVE (NEGATIVE); PROTEIN,URINE NEGATIVE (NEGATIVE)
[2022-10-20 04:10] LABS: AMORPHOUS SEDIMENT,UR MOD AMOR URATES /LPF; BACTERIA,URINE MODERATE /HPF; RBC,URINE RARE /HPF; SQUAMOUS EPITHELIAL CELL,UR 0-2 /HPF
[2022-10-20 04:20] LABS: POTASSIUM 3.5 MMOL/L (3.6-5.0)
[2022-10-20 04:21] LABS: CALCIUM 9.3 MG/DL (8.5-10.1)
[2022-10-20 04:25] LABS: CREATININE SERUM 1.22 MG/DL (0.60-1.30)
[2022-10-20] MEDS ORDERED: NITR-65 PO (04:39)
[2022-10-20] MEDS ORDERED: OXYC-199 PO (04:39)
[2022-10-20] MEDS ORDERED: KETO10TA PO (04:39)
[2022-10-20 04:58] VITALS: BP 120/95
== END 2022-10-20 04:59 | disposition home or self-care (01) ==
LOC: ER 03:00 → EDUNIT# 03:22 → ER 04:59
DX: N23 Unspecified renal colic (principal); N39.0 Urinary tract infection, site not specified; R82.71 Bacteriuria; F17.290 Nicotine dependence, other tobacco product, uncomplicated
CPT/HCPCS: 36415; 80048; 81000; 87088